=== PATIENT | male | born 1930 | race Hispanic/Latino ===

== ENCOUNTER 2017-11-19 23:21 | Emergency (ER) | payer OTHER ==
[~2017-11-19] VITALS: Ht 170.2 cm; Wt 81.2 kg
[~2017-11-19 23:21] MED LIST: ADVAIR HFA 230-12 GM INH; ALBUTEROL0.63 MG/3 INH; AZITHROMYCIN250 MG PO; BREO ELLIPTA INH; CITALOPRAM HBR20 MG PO; DIAZEPAM PO; DOXYCYCLINE HY100 MG PO; FLAGYL250 MG PO; FLOMAX0.4 MG PO; FLUOXETINE HCL10 MG PO; GLIPIZIDE ER5 MG PO; INCRUSE ELLIPTA INH; LEVOCETIRIZINE PO; LOSARTAN POTASS25 MG PO; MEDROL4 MG/DOSE-; METFORMIN HCL500 MG PO; MIRTAZAPINE15 MG PO; OMEPRAZOLE40 MG PO; PREDNISONE10 MG PO; QUESTRAN PACKET4 GM PO; VITAMIN D1000 UNI1 PO; ZOFRAN ODT4 MG; [UNRECOGNIZED DRUG - OTHER]
--- OUTSIDE RECORDS SUMMARY | 2017-11-19 23:24 | XMS REPORT ---
[facility] Address Unknown Phone Unavailable Care Team Providers Care Performance Improvement Director Name Role Phone Unavailable Unavailable Problems This patient has no known problems. Allergies, Adverse Reactions, Alerts This patient has no known allergies or adverse reactions. Medications This patient has no known medications. Results Test Description Test Time Test Comments Text Results Atomic Results Result Comments CT, BRAIN, WITHOUT CONTRAST 2017-06-24 12:40:00 Reason for exam:->FALLWhat is the patient's sedation requirement?->No Sedation FINAL REPORT CT Head without contrast CLINICAL HISTORY: Head trauma, ataxiaFALL Episode of Care: Initial TECHNIQUE: Contiguous axial images through the head without contrast. This exam was performed according to the departmental dose optimization program which includes automated exposure control, adjustment of the mA and/or kV according to the patient size, and/or use of an iterative reconstruction technique. COMPARISON: None FINDINGS: There is no evidence of skull fracture or intracranial hemorrhage. There is periventricular and subcortical white matter hypodensity which is nonspecific but compatible with chronic microvascular ischemic change. There are atherosclerotic calcifications of the intracranial circulation. There is generalized parenchymal volume loss without hydrocephalus, midline shift, or apparent mass effect. The paranasal sinuses are well-aerated. IMPRESSION: No evidence of skull fracture or intracranial hemorrhage. Signed: Cait Torres MDRort Verified Date/Time: 06/24/2017 12:40:28 Reading Location: [facility] Radiology Reading Room
--- NOTE | 2017-11-20 00:19 | Diagnostic Imaging Report ---
EXAMINATION: CHEST 2 VIEWS INDICATION: Shortness of breath COMPARISON: 04/26/2017 FINDINGS: TUBES and LINES: None. LUNGS: Lungs are well inflated. Lungs are clear. There is no evidence of pneumonia or pulmonary edema. PLEURA: No pleural effusion or pneumothorax. HEART AND MEDIASTINUM: The cardiomediastinal silhouette is unremarkable. BONES AND SOFT TISSUES: No acute osseous lesion. Soft tissues are unremarkable. UPPER ABDOMEN: No free air under the diaphragm. IMPRESSION: No acute thoracic abnormality. Signed by: Dr. Tomi Zamudio M.D. on 11/20/2017 12:15 AM
== END 2017-11-20 01:03 | disposition home or self-care (01) ==
LOC: ER 23:21
DX: F41.1 Generalized anxiety disorder (principal); I10 Essential (primary) hypertension; J44.9 Chronic obstructive pulmonary disease, unspecified; K21.9 Gastro-esophageal reflux disease without esophagitis
CPT/HCPCS: 71046; 99283

== ENCOUNTER 2018-04-23 06:22 | Observation (INO) | payer OTHER ==
[2018-04-23] VITALS (7 sets, daily range): BP systolic 119–156; BP diastolic 65–89
[~2018-04-23] VITALS: Ht 167.6 cm; Wt 83.5 kg
[2018-04-23] MEDS ORDERED: VENTOLIN HFA18 GM INH (06:44)
[2018-04-23] MEDS ORDERED: SINEMET 25-1001 EACH PO (06:44)
[2018-04-23] MEDS ORDERED: GLIMEPIRIDE2 MG PO (06:44)
[2018-04-23] MEDS ORDERED: SYNTHROID50 MCG PO (06:44)
[2018-04-23] MEDS ORDERED: LORAZEPAM INJ 2 MG/ML VIAL IV ONE (06:45)
[2018-04-23 06:52] LABS: BASOPHILS % 0.3 % (0.0-1.0); HEMATOCRIT 42.3 % (38.2-49.6); HEMOGLOBIN 14.1 g/dL (14.0-18.0); LYMPHOCYTES # (AUTO) 0.7 (1.0-3.2); LYMPHOCYTES % 19.6 % (18.0-39.1); MEAN CORPUSCULAR HEMOGLOBIN 29.1 pg (28-32); MEAN CORPUSCULAR HGB CONC 33.3 g/dL (31-35); MEAN CORPUSCULAR VOLUME 87.4 fL (81-99); MONOCYTES # (AUTO) 0.8 (0.2-0.8); MONOCYTES % 23.5 % (4.4-11.3); NEUTROPHILS % 54.6 % (38.7-80.0); PLATELET COUNT 75 x10e3/uL (140-360); RED BLOOD COUNT 4.84 x10e6/uL (4.3-5.7); RED CELL DISTRIBUTION WIDTH 14.4 % (11.7-14.4)
[2018-04-23 06:53] LABS: INR 1.09; PROTHROMBIN TIME 13.3 seconds (11.9-14.5)
[2018-04-23 07:03] LABS: ALBUMIN 4.3 g/dL (3.5-5.0); ALBUMIN/GLOBULIN RATIO 1.3 (0.8-2.0); ALKALINE PHOSPHATASE 81 IU/L (40-150); ANION GAP 13.9 mmol/L (8-16); BLOOD UREA NITROGEN 15 mg/dL (7-26); BUN/CREATININE RATIO 13 (6-25); CALCIUM 9.6 mg/dL (8.4-10.2); CARBON DIOXIDE 27 mmol/L (22-29); CHLORIDE 104 mmol/L (98-107); CREATINE KINASE 137 IU/L (30-200); CREATININE, SERUM 1.18 mg/dL (0.72-1.25); EST GLOMERULAR FILTRATION RATE 58 ML/MIN (60-); GLUCOSE 112 mg/dL (74-118); MAGNESIUM 2.1 MG/DL (1.3-2.1); POTASSIUM 3.9 mmol/L (3.5-5.1); SODIUM 141 mmol/L (136-145)
[2018-04-23 07:05] LABS: ALANINE AMINOTRANSFERASE < 6 IU/L (0-55)
[2018-04-23 07:12] LABS: B-TYPE NATRIURETIC PEPTIDE2 62.3 pg/mL (0-100)
[2018-04-23 07:22] LABS: CLARITY,URINE HAZY (CLEAR); COLOR,URINE YELLOW (YELLOW); LEUKOCYTE ESTERASE ,URINE 1+ (NEGATIVE)
[2018-04-23 07:23] LABS: BILIRUBIN,URINE NEGATIVE (NEGATIVE); KETONES,URINE NEGATIVE (NEGATIVE); NITRITE,URINE NEGATIVE (NEGATIVE); PROTEIN,URINE DIPSTICK NEGATIVE (NEGATIVE); URINE UROBILINOGEN 0.2 mg/dL (0.2 - 1)
--- NOTE | 2018-04-23 07:26 | Diagnostic Imaging Report ---
EXAMINATION: PA and lateral views of the chest. COMPARISON: Chest 2 views 11/19/2017 CLINICAL HISTORY: Shortness of breath DISCUSSION: Lines/tubes: None. Lungs: The lungs are well inflated and grossly clear. There is no evidence of pneumonia or pulmonary edema. Pleura: There is no pleural effusion or pneumothorax. Heart and mediastinum: Stable mild enlargement of the cardiac silhouette. Pulmonary vasculature is normal. Tortuous aorta. Bones and soft tissues: No acute bony abnormalities. Degenerative changes in the thoracic spine IMPRESSION: Stable mild enlargement of the cardiac silhouette, without acute cardiopulmonary abnormalities. Signed by: Dr. Gurinder Hamm M.D. on 04/23/2018 7:23 AM
[2018-04-23 07:35] LABS: BACTERIA,URINE FEW /HPF; EPITHELIAL CELLS,URINE FEW /LPF; RBC,URINE 0-5 /HPF (0-5)
[2018-04-23] MEDS ORDERED: ACETAMINOPHEN 325 MG TAB PO PRN (07:45)
[2018-04-23] MEDS ORDERED: CLONIDINE HCL 0.1 MG TAB PO PRN (07:45)
[2018-04-23] MEDS ORDERED: ONDANSETRON HCL INJ 2 MG/ML VIAL IV PRN (07:45)
[2018-04-23] MEDS ORDERED: IBUPROFEN 200 MG TAB PO PRN (07:45)
[2018-04-23] MEDS ORDERED: LACTULOSE SYRUP 20 GM/30 ML UDC PO PRN (07:45)
[2018-04-23] MEDS ORDERED: DIPHENHYDRAMINE HCL 25 MG CAP PO PRN (07:45)
[2018-04-23] MEDS ORDERED: ZOLPIDEM TARTRATE 5 MG TAB PO PRN (07:45)
[2018-04-23] MEDS ORDERED: ALBUTEROL/IPRATROPIUM 3 ML NEB NEB PRN (07:45)
[2018-04-23] MEDS ORDERED: ENALAPRILAT IV INJ 1.25 MG/ML VIAL IV PRN (07:45)
[2018-04-23] MEDS ORDERED: SODIUM CHLORIDE FLUSH 10 ML SYR INJ PRN (07:45)
[2018-04-23] MEDS ORDERED: IBUPROFEN 400 MG TAB PO PRN (11:30)
[2018-04-23] MEDS ORDERED: DEXTROSE 50% SYRINGE 50 ML IV PRN (14:15)
[2018-04-23] MEDS: CARBIDOPA/LEVODOPA 25/100 TAB PO SCH ×2 (16:00→21:12)
[2018-04-23] MEDS: INSULIN LISPRO 100 UNIT/1 ML 3ML VIAL SQ SCH ×2 (16:30→21:00)
[2018-04-23] MEDS: GLIMEPIRIDE 2 MG TAB PO SCH (16:46)
--- NOTE | 2018-04-23 17:36 | Diagnostic Imaging Report ---
EXAMINATION: CT scan of the chest without contrast. TECHNIQUE: Spiral CT images of the chest were performed from the lung apices to the level of the adrenal glands. No intravenous contrast was administered per physician's request. Coronal and sagittal reformatted images were obtained. COMPARISON: CT chest 04/26/2017 CLINICAL HISTORY:Dyspnea, shortness of breath DISCUSSION: ABSENCE OF INTRAVENOUS CONTRAST DECREASES SENSITIVITY FOR DETECTION OF FOCAL LESIONS AND VASCULAR PATHOLOGY. LINES/TUBES: None. LUNGS AND AIRWAYS: Mild groundglass attenuation in the posterior segment of the right upper lobe, similar to the prior exam, with associated focal bronchiectasis, likely representing mild fibrosis. Stable mild subpleural reticulation in bilateral lower lobes, likely reflecting mild fibrotic changes. No consolidation, masses or other opacities. Stable 5-6 mm nodular density in the right upper lobe (series 3, image 28). Stable 5 mm noncalcified nodule in the posterior right lower lobe (series 3, image 82), which is slightly more conspicuous on today's exam likely due to slice selection. No other nodules. The airways are clear, without endobronchial lesions. PLEURA: No pneumothorax or pleural effusions. HEART AND MEDIASTINUM: Thyroid is unremarkable. Stable cardiomegaly. No pericardial effusion. Ectasia of the ascending aorta, which measures 4.1 x 4.0 cm. Main pulmonary artery is normal in caliber. Atherosclerotic calcification of the aortic arch. LYMPH NODES: There is no mediastinal, hilar or axillary lymphadenopathy. ABDOMEN: Limited unenhanced views of the upper abdomen show no abnormality within the visualized liver, spleen, pancreas, or adrenals. BONES AND SOFT TISSUES: No aggressive lytic lesions. Degenerative disc changes in the thoracic spine. Soft tissues are unremarkable. IMPRESSION: 1. Stable mild fibrotic changes in the posterior segment of the right upper lobe and bilateral lower lobes. 2. Stable pulmonary nodules in the right upper lobe and right lower lobe. No consolidation, masses or other opacities. 3. Stable cardiomegaly. Signed by: Dr. Gurinder Hamm M.D. on 04/23/2018 5:33 PM
[2018-04-24 04:10] VITALS: BP 135/65
[2018-04-24] MEDS ORDERED: LEVOTHYROXINE SODIUM 25 MCG TABLET PO SCH (06:00)
[2018-04-24] MEDS ORDERED: LEVOTHYROXINE SODIUM 50 MCG TAB PO SCH (06:30)
[2018-04-24 07:51] VITALS: BP 142/67
[2018-04-24] MEDS: INSULIN LISPRO 100 UNIT/1 ML 3ML VIAL SQ SCH (09:00)
[2018-04-24] MEDS ORDERED: LOSARTAN POTASSIUM 25 MG TAB PO SCH (09:00)
[2018-04-24] MEDS ORDERED: TAMSULOSIN HCL 0.4 MG CAP PO SCH (09:00)
[2018-04-24] MEDS ORDERED: PANTOPRAZOLE SOD 40 MG TABEC PO SCH (09:00)
[2018-04-24] MEDS: GLIMEPIRIDE 2 MG TAB PO SCH (09:37)
[2018-04-24] MEDS: CARBIDOPA/LEVODOPA 25/100 TAB PO SCH (09:38)
[2018-04-24] MEDS ORDERED: TRIAMCINOLONE ACET 40 MG/ML VIAL IM ONE (11:30)
[2018-04-24 12:17] VITALS: BP 154/70
--- NOTE | 2018-04-24 16:32 | Discharge Summary ---
PCP: Dr. Milagro Lemus CHIEF COMPLAINT: Acute exacerbation of COPD. HISTORY: This is an 87-year-old male who came in with oxygen saturation of around 95% to 98% at room air. He does have some minor wheezing. The patient is stable. He was on observation. The patient did receive Kenalog 20 mg IM one time. He will go home with a Medrol Dosepak. He does take diabetic medication. Advised the patient to increase his Amaryl if needed. The patient is stable. Discharged home today. Medications given. Medrol Dosepak. Continue with his albuterol and Breo. Cough medication, Tessalon Perles. Levaquin 500 mg daily for 5 days. Patient to follow up with Dr. Lemus for oxygen renewal. Job#: [id number] ROLO
== END 2018-04-24 12:32 | disposition home or self-care (01) ==
LOC: ER 06:22 → ERHOLD 07:59 → IMCU 10:30
PROVIDERS: ADMIT Internal Medicine; ATTEND Internal Medicine
DX: J44.1 Chronic obstructive pulmonary disease with (acute) exacerbation (principal); E11.9 Type 2 diabetes mellitus without complications; I10 Essential (primary) hypertension; Z86.711 Personal history of pulmonary embolism
CPT/HCPCS: 36415 ×2; 71046; 71250; 80053; 81001; 82550; 82553; 82948 ×2; 83605; 83735; 83880; 84484; 85025; 85610; 85730; 87040; 87086; 93005; 99284; G0378 ×2; J2060; J3301; S0164

== ENCOUNTER 2018-05-08 06:52 | Emergency (ER) | payer OTHER ==
[~2018-05-08] VITALS: Ht 167.6 cm; Wt 83.5 kg
[~2018-05-08 06:52] MED LIST changes: +GLIMEPIRIDE2 MG PO; +SINEMET 25-1001 EACH PO; +SYNTHROID50 MCG PO; +VENTOLIN HFA18 GM INH
[2018-05-08] MEDS ORDERED: KETOROLAC TROMETHAMINE 30 MG/ML VIAL IV NR (08:10)
[2018-05-08 08:27] LABS: EOSINOPHILS % 0.1 % (0.0-6.0); HEMOGLOBIN 14.3 g/dL (14.0-18.0); LYMPHOCYTES # (AUTO) 0.3 (1.0-3.2); MEAN CORPUSCULAR HEMOGLOBIN 29.2 pg (28-32); MEAN CORPUSCULAR HGB CONC 33.3 g/dL (31-35); MEAN CORPUSCULAR VOLUME 87.9 fL (81-99); MONOCYTES # (AUTO) 1.5 (0.2-0.8); MONOCYTES % 16.6 % (4.4-11.3); NEUTROPHILS # (AUTO) 7.2 (2.1-6.9); NEUTROPHILS % 79.1 % (38.7-80.0); PLATELET COUNT 67 x10e3/uL (140-360); RED BLOOD COUNT 4.89 x10e6/uL (4.3-5.7); RED CELL DISTRIBUTION WIDTH 14.9 % (11.7-14.4)
[2018-05-08] MEDS ORDERED: ASPIRIN 81 MG CHEW TAB PO ONE (08:30)
--- NOTE | 2018-05-08 09:39 | Diagnostic Imaging Report ---
EXAM: XR CHEST 1 VIEW DATE: 05/08/2018 8:10 AM INDICATION: Pain COMPARISON: 04/23/2018 FINDINGS: Lines and Tubes: None Heart and Mediastinum: No acute cardiomediastinal findings. Lungs and Pleura: No significant pleural effusion, pneumothorax, or focal consolidation. Bones and Soft Tissues: No acute findings. IMPRESSION: 1. No acute cardiopulmonary findings. Signed by: Dr. German Diaz MD on 05/08/2018 9:36 AM
[2018-05-08 09:53] LABS: ALANINE AMINOTRANSFERASE 12 IU/L (0-55); ALBUMIN 3.6 g/dL (3.5-5.0); ALBUMIN/GLOBULIN RATIO 1.2 (0.8-2.0); ALKALINE PHOSPHATASE 88 IU/L (40-150); AMYLASE 27 U/L (25-125); ANION GAP 14.8 mmol/L (8-16); BLOOD UREA NITROGEN 15 mg/dL (7-26); BUN/CREATININE RATIO 15 (6-25); CALCIUM 8.8 mg/dL (8.4-10.2); CARBON DIOXIDE 23 mmol/L (22-29); CHLORIDE 102 mmol/L (98-107); CREATINE KINASE 23 IU/L (30-200); CREATININE, SERUM 1.02 mg/dL (0.72-1.25); EST GLOMERULAR FILTRATION RATE > 60 ML/MIN (60-); LIPASE 4 U/L (8-78); POTASSIUM 3.8 mmol/L (3.5-5.1); SODIUM 136 mmol/L (136-145)
[2018-05-08 10:29] LABS: GLUCOSE 184 mg/dL (74-118)
[2018-05-08] MEDS ORDERED: KETOROLAC TROMETHAMINE 30 MG/ML VIAL ONE (13:30)
[2018-05-08] MEDS ORDERED: KETOROLAC TROMETHAMINE 30 MG/ML VIAL IV ONE (14:52)
--- NOTE | 2018-05-08 14:52 | Diagnostic Imaging Report ---
EXAM: CT Abdomen and Pelvis WITH contrast INDICATION: Pain COMPARISON: None. TECHNIQUE: Abdomen and Pelvis was scanned utilizing a multidetector helical scanner after administration of IV contrast. Coronal and sagittal reformations were obtained. IV CONTRAST: 100 mL Isovue-370 COMPLICATIONS: None RADIATION DOSE: Total DLP:935 mGy*cm Estimated effective dose: (DLP x 0.015 x size factor) mSv CTDIvol has been reviewed. It is below the limits set by the Radiation Protocol Committee (RPC). FINDINGS: Abdomen: Lung Bases: Atelectasis. Solid Organs: Several bilateral renal hypodensities are too small to definitively characterize, but statistically represent cysts. Solid organs otherwise unremarkable. Upper GI Tract: Small hiatal hernia. Motion limits evaluation of the gastric antrum. No small bowel obstructive changes. Vascularity: Mild aortic vascular calcifications with no aneurysm. Lymph Nodes: No suspicious adenopathy. Other: None. Pelvis: Bladder: Small diverticulum arising from anterior aspect of the dome. Other: Prostate is enlarged and heterogeneous indenting the base of the bladder. Transverse diameter 67mm. Fat-containing hernias with knuckle of sigmoid on the left interposed. Colon: Distal decompression limits evaluation. No acute findings. Appendix not inflamed. Bones: Moderate degenerative changes. IMPRESSION: 1. Enlarged prostate indenting base of bladder. Clinical and laboratory correlation recommended. 2. Asymmetric to the left predominantly fat-containing inguinal hernias with knuckle of sigmoid colon interposed on the left. No obstructive changes. 3. Hiatal hernia. Signed by: Dr. German Diaz MD on 05/08/2018 12:30 PM
[2018-05-08 16:21] VITALS: BP 146/76
[2018-05-08] MEDS ORDERED: IOPAMIDOL 370 MG/ML 200 ML INFUS..BTL INJ ONE (18:56)
[2018-05-08] MEDS ORDERED: SODIUM CHLORIDE 0.9% 50ML 50 ML ONE (18:56)
== END 2018-05-08 14:00 | disposition home or self-care (01) ==
LOC: ER 06:52
DX: R10.11 Right upper quadrant pain (principal); R09.1 Pleurisy; R11.0 Nausea; I10 Essential (primary) hypertension; E11.9 Type 2 diabetes mellitus without complications; E03.9 Hypothyroidism, unspecified
CPT/HCPCS: 36415; 71045; 74177; 80053; 82150; 82550; 82553; 83690; 84484; 85025; 99284; J1885; Q9967

== ENCOUNTER 2018-05-30 14:48 | Emergency (ER) | payer OTHER ==
[~2018-05-30] VITALS: Ht 167.6 cm; Wt 83.5 kg
[2018-05-30] MEDS ORDERED: PREDNISONE 20 MG TAB PO ONE (16:45)
--- OUTSIDE RECORDS SUMMARY | 2018-07-14 03:15 | XMS REPORT | Clinical Summary ---
Author Author [facility] Address Unknown Phone Unavailable Care Team Providers Care Voltage Tester Name Role Phone PCP Unavailable Allergies No Known Allergies Current Medications Prescription Sig. Disp. Refills Start End Date Status Date mupirocin (BACTROBAN) 2 % Apply topically 3 (three) 22 g 0 06/24/20 07/01/20 ointment times daily for 7 days. 17 17 Active Problems Not on file Encounters Date Type Specialty Care Team Description 06/24/2017 Emergency Emergency Medicine Hiram Clifford MD Fall, initial encounter (Primary Dx);Head injury, initial encounter;Ear lobe laceration, left, initial encounter after 05/29/2017 Immunizations Name Dates Previously Given Next Due Tdap 06/24/2017 Social History Tobacco Use Types Packs/Day Years Used Date Former Smoker Smokeless Tobacco: Never Used Alcohol Use Drinks/Week oz/Week Comments No Sex Assigned at Date Recorded Not on file Last Filed Vital Signs Vital Sign Reading Time Taken Blood Pressure 136/84 06/24/2017 2:19 PM CDT Pulse 85 06/24/2017 2:19 PM CDT Temperature 36.6 C (97.8 F) 06/24/2017 11:30 AM CDT Respiratory Rate 16 06/24/2017 2:19 PM CDT Oxygen Saturation 94% 06/24/2017 2:19 PM CDT Inhaled Oxygen - - Concentration Weight 79.4 kg (175 lb) 06/24/2017 11:30 AM CDT Height 170.2 cm (5' 7") 06/24/2017 11:30 AM CDT Body Mass Index 27.41 06/24/2017 11:30 AM CDT Plan of Treatment Not on file Results * CT brain without IV contrast (06/24/2017 12:40 PM) Specimen Performing Laboratory GE RIS Narrative FINAL REPORT CT Head without contrast CLINICAL HISTORY: Head trauma, ataxia FALL Episode of Care: Initial TECHNIQUE: Contiguous axial [...] skull fracture or intracranial hemorrhage. Signed: Cait Hyde MD Report Verified Date/Time:06/24/2017 12:40:28 Reading Location: [facility] Reading Room Procedure Note Interface, External Ris In - 06/24/2017 12:42 PM CDT FINAL REPORT CT Head without contrast CLINICAL HISTORY: Head trauma, ataxia FALL Episode of Care: Initial TECHNIQUE: Contiguous axial [...] skull fracture or intracranial hemorrhage. Signed: Cait Hyde MD Report Verified Date/Time: 06/24/2017 12:40:28 Reading Location: [facility] Reading Room after 05/29/2017
--- OUTSIDE RECORDS SUMMARY | 2018-07-14 03:15 | XMS REPORT | Continuity of Care Document ---
Author Author [facility] Organization [facility] Address [address] [place] [address] Phone Unavailable Care Team Providers Care Cycle Manager Name Role Phone NONSTAFF PCP Unavailable Insurance Providers Guarantor Jay Chin Address [address] [place] [address] Email NONE Payer [employer] Policy Number [id number] Subscriber's Name Jay Chin Relationship 18 Self / Same As Patient Group Number [id number] Group Name [employer] - [employer] Ad[employer]age [employer] Effective Date 18 Advance Directives Directive Response Recorded Date/Time Does the patient have an advance directive? No 04/23/18 12:21pm If yes, is advance directive on file with [facility]? No 04/23/18 12:21pm If not on file with [facility] will patient provide a copy? No 04/23/18 12:21pm Do you have a Directive to Physician? No 05/08/18 7:21am Do you have a Medical Power of Outboard Motor Tester? No 05/08/18 7:21am Do you have an out of hospital Do Not Resuscitate Order? No 05/08/18 7:21am Do you have any special needs we should be aware of? No 05/08/18 7:21am Do you have a support person here with you today? No 05/08/18 7:21am Did patient receive Notice of Privacy Practices? Yes 05/08/18 7:21am Did patient receive patient rights and responsibilities? Yes 05/08/18 7:21am Problems Medical Problem Onset Date Status Bronchitis Unknown COPD exacerbation Unknown Dyspnea and respiratory abnormality Unknown Dyspnea or other respiratory complaints Unknown Enterocolitis Unknown Medications Current Home Medications Medication Dose Units Route Directions Days Qty Instructions Start Date Albuterol Sulfate (Ventolin Hfa) 18 Gm Hfa.aer.ad 2 Dose Inhalation Every 4 Hours as needed for Shortness Of Breath Breo Ellipta 1 Inh Inhalation Daily Carbidopa/Levodopa (Sinemet 25-100 Mg Tablet) 1 Each Tablet 2 Tab Oral Three Times A Day 30 Tab Glimepiride 2 Mg Tablet 1 Mg Oral Twice A Day Levothyroxine Sodium (Synthroid) 50 Mcg Tab 25 Mcg Oral Today At 6:30AM 30 Tab Losartan Potassium 25 Mg Tablet 25 Mg Oral Daily Omeprazole 40 Mg Capsule.dr 40 Mg Oral Daily Tamsulosin Hcl (Flomax*) 0.4 Mg Cap 0.4 Mg Oral Daily 30 Cap Past Home Medications Medication Directions Ordered Status Albuterol Sulfate 0.63 Mg/3 Ml Vial.neb, 0.63 Mg Inhalation Every 4 Hours as needed for Shortness Of Breath Discontinued Aromatic Cascara Fluid Extract (C[place]) 118.28 Ml Fl.extract, Discontinued Azithromycin (Z-Arden) 250 Mg Tablet, 250 Mg Oral Use As Directed Discontinued Citalopram Hydrobromide (Citalopram Hbr) 20 Mg Tablet, 20 Mg Oral Daily Discontinued Diazepam , 1 Mg Oral Twice A Day as needed for Anxiety Discontinued Doxycycline Hyclate 100 Mg Capsule, 100 Mg Oral Every 12 Hours Discontinued Levocetirizine , 5 Mg Oral Bedtime Discontinued Metformin Hcl 500 Mg Tablet, 500 Mg Oral Twice A Day Discontinued Methylprednisolone (Medrol Dose Pack) 4 Mg/Dose Pack Tab, Discontinued Social History Social History Problem Response Recorded Date/Time Onset Date Status Hx Psychiatric Problems No 10/07/2016 4:40am Not Applicable Not Applicable Hx Eating Disorder No 10/07/2016 4:40am Not Applicable Not Applicable Hx Substance Use Disorder No 10/07/2016 4:40am Not Applicable Not Applicable Hx Depression No 10/07/2016 4:40am Not Applicable Not Applicable Hx Alcohol Use No 10/07/2016 4:40am Not Applicable Not Applicable Hx Substance Use Treatment No 10/07/2016 4:40am Not Applicable Not Applicable Hx Physical Abuse No 10/07/2016 4:40am Not Applicable Not Applicable Smoking Status Start Date Stop Date Never Smoker Hospital Discharge Instructions No hospital discharge instruction information available. Plan of Care Discharge Date 07/29/18 2:00pm Disposition HOME, SELF-CARE Condition at Discharge Stable Forms Provided Work/School Excuse Prescriptions See Medication Section Additional Instructions/Education FOLLOW UP C PRIMARY TAKE RX PRESCRIBED Functional Status No functional status information available. Allergies, Adverse Reactions, Alerts Allergen Type Severity Reaction Status Last Updated No Known Drug Allergies Allergy Mild Active 05/08/18 Immunizations No immunization information available. Vital Signs Acute Vital Signs Vital Response Date/Time Temperature (Fahrenheit) 96.2 degrees F (97.6 - 99.5) 04/24/2018 12:17pm Pulse Pulse Rate (adult) 76 bpm (60 - 90) 04/24/2018 12:17pm Respiratory Rate 18 bpm (12 - 24) 04/24/2018 12:17pm Blood Pressure 146/76 mm Hg 05/08/2018 4:21pm Height 5 ft 6 in 05/08/2018 7:25am Weight 184 lb 05/08/2018 7:25am Body Mass Index 29.7 kg/m^2 05/08/2018 7:25am Results Laboratory Results Test Name Result Units Flags Reference Collection Date/Time Result Date/ Time Comments Prothrombin Time 13.3 seconds 11.9-14.5 04/23/2018 6:35am 04/23/2018 7: 01am Prothromb Time International Ratio 1.09 04/23/2018 6:35am 2017 7:01am Oral Anticoagulant Therapy INR Values: 1. Low Intensity Therapy 1.5 - 2.0 2. Moderate Intensity Therapy 2.0 - 3.0 3. High Intensity Therapy(1) 2.5 - 3.5 4. High Intensity Therapy(2) 3.0 - 4.0 5. Panic Value INR > 5.0 Activated Partial Thromboplast Time 40.0 seconds H 23.8-35.5 04/23/2018 6 :35am 04/23/2018 7:01am Urine Color YELLOW YELLOW 04/23/2018 7:00am 04/23/2018 7:23am Urine Clarity HAZY CLEAR 04/23/2018 7:00am 04/23/2018 7:23am Urine Specific [place] 1.010 1.010-1.025 04/23/2018 7:00am 2017 7:23am Urine pH 6 5 - 7 04/23/2018 7:00am 04/23/2018 7:23am Urine Leukocyte Esterase 1+ H NEGATIVE 04/23/2018 7:00am 04/23/2018 7: 23am Urine Nitrite NEGATIVE NEGATIVE 04/23/2018 7:00am 04/23/2018 7:23am Urine Protein NEGATIVE NEGATIVE 04/23/2018 7:00am 04/23/2018 7:23am Urine Glucose (UA) NEGATIVE NEGATIVE 04/23/2018 7:00am 04/23/2018 7: 23am Urine Ketones NEGATIVE NEGATIVE 04/23/2018 7:00am 04/23/2018 7:23am Urine Urobilinogen 0.2 mg/dL 0.2 - 1 04/23/2018 7:00am 04/23/2018 7: 23am Urine Bilirubin NEGATIVE NEGATIVE 04/23/2018 7:00am 04/23/2018 7: 23am Urine Blood NEGATIVE NEGATIVE 04/23/2018 7:00am 04/23/2018 7:23am Urine WBC 6-10 /HPF H 0-5 04/23/2018 7:00am 04/23/2018 7:35am Urine RBC 0-5 /HPF 0-5 04/23/2018 7:00am 04/23/2018 7:35am Urine Bacteria FEW /HPF NONE 04/23/2018 7:00am 04/23/2018 7:35am Urine Epithelial Cells FEW /LPF NONE 04/23/2018 7:00am 04/23/2018 7: 35am Bedside Glucose 125 mg/dL H 70-120 04/24/2018 12:13pm 04/24/2018 12: 21pm Meter ID: [id number] Lactic Acid Level 11.4 MG/DL 4.5-19.8 04/23/2018 6:35am 04/23/2018 7: 01am Magnesium Level 2.1 MG/DL 1.3-2.1 04/23/2018 6:35am 04/23/2018 7:05am B-Type Natriuretic Peptide 62.3 pg/mL 0-100 04/23/2018 6:35am 2017 7:14am White Blood Count 9.06 x10e3/uL 4.8-10.8 05/08/2018 7:50am 05/08/2018 8 :33am Red Blood Count 4.89 x10e6/uL 4.3-5.7 05/08/2018 7:5005/08/2018 8: 33am Hemoglobin 14.3 g/dL 14.0-18.0 05/08/2018 7:50am 05/08/2018 8:33am Hematocrit 43.0 % 38.2-49.6 05/08/2018 7:5005/08/2018 8:33am Mean Corpuscular Volume 87.9 fL 81-99 05/08/2018 7:5005/08/2018 8: 33am Mean Corpuscular Hemoglobin 29.2 pg 28-32 05/08/2018 7:50am 05/08/2018 8:33am Mean Corpuscular Hemoglobin Concent 33.3 g/dL 31-35 05/08/2018 7:50am 05/08/2018 8:33am Red Cell Distribution Width 14.9 % H 11.7-14.4 05/08/2018 7:50am 2017 8:33am Platelet Count 67 x10e3/uL L 140-360 05/08/2018 7:5005/08/2018 8: 33am Neutrophils (%) (Auto) 79.1 % 38.7-80.0 05/08/2018 7:50am 05/08/2018 8: 33am Lymphocytes (%) (Auto) 3.0 % L 18.0-39.1 05/08/2018 7:50am 05/08/2018 8: 33am Monocytes (%) (Auto) 16.6 % H 4.4-11.3 05/08/2018 7:50am 05/08/2018 8: 33am Eosinophils (%) (Auto) 0.1 % 0.0-6.0 05/08/2018 7:50am 05/08/2018 8: 33am Basophils (%) (Auto) 0.0 % 0.0-1.0 05/08/2018 7:5005/08/2018 8:33am IM GRANULOCYTES % 1.2 % H 0.0-1.0 05/08/2018 7:50am 05/08/2018 8:33am Neutrophils # (Auto) 7.2 H 2.1-6.9 05/08/2018 7:50am 05/08/2018 8: 33am Lymphocytes # (Auto) 0.3 L 1.0-3.2 05/08/2018 7:50am 05/08/2018 8: 33am Monocytes # (Auto) 1.5 H 0.2-0.8 05/08/2018 7:50am 05/08/2018 8:33am Eosinophils # (Auto) 0.0 0.0-0.4 05/08/2018 7:50am 05/08/2018 8:33am Basophils # (Auto) 0.0 0.0-0.1 05/08/2018 7:50am 05/08/2018 8:33am Absolute Immature Granulocyte (auto 0.11 x10e3/uL H 0-0.1 05/08/2018 7: 50am 05/08/2018 8:33am Sodium Level 136 mmol/L 136-145 05/08/2018 9:1405/08/2018 9:54am Potassium Level 3.8 mmol/L 3.5-5.1 05/08/2018 9:1405/08/2018 9:54am Chloride Level 102 mmol/L 98-107 05/08/2018 9:1405/08/2018 9:54am Carbon Dioxide Level 23 mmol/L 05/08/2018 9:1405/08/2018 9: 54am Anion Gap 14.8 mmol/L 8-05/08/2018 9:1405/08/2018 9:54am Blood Urea Nitrogen 15 mg/dL 05-0505/08/2018 9:1405/08/2018 9:54am Creatinine 1.02 mg/dL 0.72-1.25 05/08/2018 9:1405/08/2018 9:54am BUN/Creatinine Ratio 15 -05/08/2018 9:1405/08/2018 9:54am Estimat Glomerular Filtration Rate > 60 ML/MIN 6005/08/2018 9:14 9:54am Ranges were taken from the National Kidney Disease Education Program and the National Kid[employer] Foundation literature. Reference ranges: 60 or greater: Normal 16-59 (for 3 consecutive months): Chronic kidney disease 15 or less: Kidney failure Glucose Level 184 mg/dL H 74-118 05/08/2018 9:14am 05/08/2018 10:30am Calcium Level 8.8 mg/dL 8.4-10.2 05/08/2018 9:1405/08/2018 9:54am Total Bilirubin 2.0 mg/dL H 0.2-1.2 05/08/2018 9:14am 05/08/2018 9:54am Aspartate Amino Transf (AST/SGOT) 19 IU/L 5-34 05/08/2018 9:14am 2017 9:54am Alanine Aminotransferase (ALT/SGPT) 12 IU/L 0-55 05/08/2018 9:14 9:54am Total Protein 6.6 g/dL 6.5-8.1 05/08/2018 9:1405/08/2018 9:54am Albumin 3.6 g/dL 3.5-5.0 05/08/2018 9:1405/08/2018 9:54am Globulin 3.0 g/dL 2.3-3.5 05/08/2018 9:1405/08/2018 9:54am Albumin/Globulin Ratio 1.2 0.8-2.0 05/08/2018 9:14am 05/08/2018 9: 54am Alkaline Phosphatase 88 IU/L 40-150 05/08/2018 9:14am 05/08/2018 9: 54am Creatine Kinase 23 IU/L L 30-200 05/08/2018 9:14am 05/08/2018 9:54am Creatine Kinase MB 1.40 ng/mL 0-5.0 05/08/2018 9:14am 05/08/2018 10: 04am Troponin I 0.004 ng/mL 0-0.300 05/08/2018 9:14am 05/08/2018 10:04am Amylase Level 27 U/L 25-125 05/08/2018 9:14am 05/08/2018 9:54am Lipase 4 U/L L 8-78 05/08/2018 9:14am 05/08/2018 9:54am Microbiology Results Procedure Source Organism/Result Collection Date/Time Result Date/Time Result Status Blood Culture Blood NO GROWTH AFTER 5 DAYS, FINAL REPORT 04/23/2018 6:35am 04/28/2018 6:45am Final Procedures Procedure Status Date Provider(s) X-ray of chest, two views Active 11/19/17 SIDDHARTH MOTT MD X-ray of chest, two views Active 04/23/18 HAYDE KIM MD Computed tomography of chest without contrast Active 04/23/18 CLAIRE STAUFFER MD Computed tomography of abdomen and pelvis with contrast Active 05/08/18 МАРИНА ENRIQUE MD Encounters Encounter Location Arrival/Admit Date Discharge/Depart Date Attending Provider Departed Emergency Room [facility] 05/08/18 6:52am 2:00pm МАРИНА ENRIQUE MD Discharged Inpatient (obs) [facility] 04/23/18 7:59am 12:32pm CLAIRE STAUFFER MD Departed Emergency Room [facility] 11/19/17 11:21pm 11/20 1:03am SIDDHARTH MOTT MD
== END 2018-05-30 17:19 | disposition home or self-care (01) ==
LOC: ER 14:48
DX: L50.9 Urticaria, unspecified (principal); I10 Essential (primary) hypertension; E11.9 Type 2 diabetes mellitus without complications; E78.5 Hyperlipidemia, unspecified; J44.9 Chronic obstructive pulmonary disease, unspecified
CPT/HCPCS: 99282

== ENCOUNTER 2018-07-31 14:53 | Inpatient (IN) | payer OTHER ==
[~2018-07-31] VITALS: Ht 167.6 cm; Wt 92.2 kg
--- OUTSIDE RECORDS SUMMARY | 2018-07-31 14:55 | XMS REPORT | Clinical Summary ---
Author Author [facility] Address Unknown Phone Unavailable Care Team Providers Care Generator Rebuilder Name Role Phone PCP Unavailable Allergies No Known Allergies Current Medications No known medications Active Problems Not on file Immunizations Name Dates Previously Given Next Due Tdap 06/24/2017 Social History Tobacco Use Types Packs/Day Years Used Date Former Smoker Smokeless Tobacco: Never Used Alcohol Use Drinks/Week oz/Week Comments No Sex Assigned at Date Recorded Not on file Last Filed Vital Signs Not on file Plan of Treatment Not on file Results Not on fileafter 07/30/2017
--- OUTSIDE RECORDS SUMMARY | 2018-07-31 14:56 | XMS REPORT | Continuity of Care Document ---
Author Author [facility] Address Unknown Phone Unavailable Problems Problem Status Onset Date Classification Date Reported Comments Source UNSTEADINESS ON FEET/MUSCLE WEAKNESS Active 01/05/2017 [facility] Benign hypertension Active Problem 04/10/2018 [facility] Chronic kidney disease , stage III (moderate)(<span ID="[id number]">Confirmed</span>) Active Problem 04/10/2018 [facility] Chronic obstructive pulmonary disease (<span ID="[id number]">Confirmed</span>) Active Problem 04/10/2018 [facility] Requires supplemental oxygen Active Problem 04/10/2018 [facility] Diabetes mellitus type 2, controlled, with complications Active Problem 09/18/2017 [facility] GERD (<span ID="[id number]">Confirmed</span>) Active Problem 04/10/2018 [facility] Hyperlipidemia Active Problem 04/10/2018 [facility] Parkinson disease Active Problem 04/10/2018 [facility] Insomnia Active Problem 04/10/2018 [facility] Depression Active Problem 04/10/2018 [facility] BPH (<span ID="[id number]">Confirmed</span>) Active Problem 04/10/2018 [facility] Obesity Active Problem 04/10/2018 [facility] Osteoarthritis Active Problem 04/10/2018 [facility] Thrombocytopenia Active Problem 04/10/2018 [facility] Unstable gait Active Problem 04/10/2018 [facility] Type 2 diabetes mellitus with hyperglycemia Active Problem 04/10/2018 [facility] Hypothyroidism Active Problem 04/10/2018 [facility] Medications Medication Details Route Status Patient Instructions Ordering Provider Order Date Source tamsulosin 0.4 mg oral capsule 0.4 mg=1 cap, PO, Daily, # 90 cap, 1 Refill(s), Pharmacy: [facility]/pharmacy #[id number] Active 04/07/2018 [facility] omeprazole 40 mg oral delayed release capsule See Instructions, TAKE ONE CAPSULE BY MOUTH EVERY DAY, # 90 tab, 1 Refill(s), Pharmacy: [facility]acy #[id number] Active 04/07/2018 [facility] glimepiride 1 mg oral tablet 1 mg=1 tab, PO, BID, # 180 tab, 1 Refill(s), [id number] 04/07[facility]2018 [facility] losartan 25 mg oral tablet See Instructions, TAKE 1 TABLET BY MOUTH DAILY FOR 90 DAYS, # 90 tab, 1 Refill(s), [facility] Active 04/07/2018 [facility] levothyroxine 25 mcg (0.025 mg) oral tablet 25 microgram=1 tab, PO, Daily, on empty stomach, # 90 tab, 1 Refill(s), [id number] Active 04/07/2018 [facility] citalopram 20 mg oral tablet 20 mg=1 tab, PO, Daily, # 90 tab, 0 Refill(s), [id number] Active 04/07/2018 [facility] losartan 25 mg oral tablet See Instructions, TAKE 1 TABLET BY MOUTH DAILY FOR 90 DAYS, # 90 tab, 1 Refill(s), [id number] Active 12/28/2017 [facility] glimepiride 1 mg oral tablet 1 mg=1 tab, PO, BID, # 180 tab, 1 Refill(s), [id number] Active 12/28/2017 [facility] levothyroxine 25 mcg (0.025 mg) oral tablet 25 microgram=1 tab, PO, Daily, on empty stomach, # 30 tab, 2 Refill(s), [id number] Active 12/28/2017 [facility] tamsulosin 0.4 mg oral capsule 0.4 mg=1 cap, PO, Daily, # 90 cap, 1 Refill(s), [id number] Active 11/16/2017 [facility] losartan 25 mg oral tablet See Instructions, TAKE 1 TABLET BY MOUTH DAILY FOR 90 DAYS, # 90 tab, 1 Refill(s), [id number] No Longer Active 11/16/2017 [facility] glimepiride 1 mg oral tablet See Instructions, TAEK 1 TABLET BY MOUTH WITH BREAKFAST, # 90 tab, 1 Refill(s), [id number] No Longer Active 11/16/2017 [facility] citalopram 20 mg oral tablet 20 mg=1 tab, PO, Daily, # 90 tab, 0 Refill(s), [id number] Active 11/16/2017 [facility] Breo Ellipta 100 mcg-25 mcg inhalation powder 1 puff, INHALATION, BID, # 3 ea, 1 Refill(s), [id number] Active 11/16/2017 [facility] Ventolin HFA 90 mcg/inh inhalation aerosol with adapter 180 microgram=2 puff, INHALER, Q4H, PRN wheezing, coughing, or shortness of breath, # 3 ea, 1 Refill(s), [id number] Active 11/16/2017 [facility] Ventolin HFA 90 mcg/inh inhalation aerosol with adapter 180 microgram=2 puff, INHALER, Q4H, PRN wheezing, coughing, or shortness of breath, # 3 ea, 1 Refill(s), [id number] Active 09/15/2017 [facility] Breo Ellipta 100 mcg-25 mcg inhalation powder 1 puff, INHALATION, BID, # 3 ea, 1 Refill(s), [id number] Active 09/15/2017 [facility] Allergies, Adverse Reactions, Alerts Substance Category Reaction Severity Reaction type Status Date Reported Comments Source Immunizations Immunization Date Given Site Status Last Updated Comments Source pneumococcal 13-valent vaccine<sup>1</sup> 09/15/2017 Left Deltoid completed [facility] Result Comment: Patient waited 15 minutes, no reaction noted. [facility] influenza virus vaccine, inactivated<sup>2</sup> 08/11/2017 completed [facility] Result Comment: [11/16/2017] @[facility] pneumococcal 23-valent vaccine 09/10/2016 completed [facility] influenza virus vaccine, inactivated 09/10/2016 completed [facility] Results Order Name Results Value Reference Range Date Interpretation Comments Source Vital Signs Vital Sign Value Date Comments Source Weight 88.636 04/07/2018 [facility] BMI Calculated 30.61 04/07/2018 [facility] Height 170.18 cm 04/07/2018 [facility] Heart Rate 71 04/07/2018 [facility] Respitory Rate 16 04/07/2018 [facility] Temperature Oral (F) 97.3 F 04/07/2018 [facility] Systolic (mm Hg) 120 04/07/2018 [facility] Diastolic (mm Hg) 67 04/07/2018 [facility] BMI Calculated 30.25 12/28/2017 [facility] Height 167.64 cm 12/28/2017 [facility] Weight 85 12/28/2017 [facility] Temperature Oral (F) 98.8 F 12/28/2017 [facility] Respitory Rate 16 12/28/2017 [facility] Heart Rate 75 12/28/2017 [facility] Systolic (mm Hg) 111 12/28/2017 [facility] Diastolic (mm Hg) 65 12/28/2017 [facility] Weight 88.636 11/16/2017 [facility] BMI Calculated 31.54 11/16/2017 [facility] Height 167.64 cm 11/16/2017 [facility] Temperature Oral (F) 97.7 F 11/16/2017 [facility] Respitory Rate 16 11/16/2017 [facility] Heart Rate 78 11/16/2017 [facility] Systolic (mm Hg) 120 11/16/2017 [facility] Diastolic (mm Hg) 75 11/16/2017 [facility] Height 170.18 cm 09/15/2017 [facility] Temperature Oral (F) 97.7 F 09/15/2017 [facility] BMI Calculated 30.45 09/15/2017 [facility] Weight 88.182 09/15/2017 [facility] Respitory Rate 14 09/15/2017 [facility] Heart Rate 94 09/15/2017 [facility] Systolic (mm Hg) 157 09/15/2017 [facility] Diastolic (mm Hg) 82 09/15/2017 [facility] Encounters Location Location Details Encounter Type Encounter Number Reason For Visit Attending Provider ADM Date DC Date Status Source Outpatient [id number] MILAGRO CANTOR 09/09/2016 Active [facility] Outpatient [id number] MILAGRO CANTOR 10/30/2016 Active [facility] Outpatient [id number] KAROLINA ROSS 12/14/2016 Active [facility] Outpatient [id number] MILAGRO CANTOR 01/01/2017 Active [facility] OP Therapy Patients [id number] Milagro Cantor 01/13/2017 02/12/2017 [facility] Outpatient [id number] MILAGRO CANTOR 03/22/2017 Active [facility] Out[facility] [id number] MILAGRO CANTOR 05/07/2017 Active [facility] Outpatient [id number] MILAGRO CANTOR 05/27/2017 Active [facility] Outpatient [id number] MILAGRO CANTOR 06/21/2017 Active [facility] Outpatient [id number] KAROLINA ROSS 09/15/2017 Active [facility] Outpatient [id number] Milagro Cantor 09/15/2017 09/16/2017 [facility] Outpatient [id number] MILAGRO CANTOR 11/16/2017 Active [facility] Outpatient [id number] Milagro Cantor 11/16/2017 11/17/2017 [facility] Phone Message [id number] 12/24/2017 12/26/2017 [facility] Outpatient [id number] MILAGRO CANTOR 12/28/2017 Active [facility] Outpatient [id number] Milagro Cantor 12/28/2017 12/29/2017 [facility] Phone Message [id number] 12/31/2017 01/02/2018 [facility] Outpatient [id number] MILAGRO CANTOR 04/07/2018 Active [facility] Outpatient [id number] Milagro Cantor 04/07/2018 04/08/2018 [facility] Outpatient [id number] MILAGRO CANTOR 05/31/2018 Active [facility] Outpatient [id number] MILAGRO CANTOR 06/22/2018 Active [facility] Outpatient [id number] MILAGRO CANTOR 08/01/2018 Active [facility]in[facility] Study 7 field stereoscopic fundus photography<sup>1</sup> [id number] 01/27/[address] [facility] Examination of eye<sup>1</sup> [id number] 08/06/2017 Dr [facility]
[2018-07-31] MEDS ORDERED: CITALOPRAM HBR20 MG PO (15:34)
[2018-07-31] MEDS ORDERED: SODIUM CHLORIDE 0.9% 500ML 500 ML IV ONE (15:45)
[2018-07-31 15:51] LABS: BASOPHILS % 0.3 % (0.0-1.0); EOSINOPHILS % 0.3 % (0.0-6.0); HEMATOCRIT 40.6 % (38.2-49.6); HEMOGLOBIN 13.2 g/dL (14.0-18.0); LYMPHOCYTES % 16.1 % (18.0-39.1); MEAN CORPUSCULAR HEMOGLOBIN 29.8 pg (28-32); MEAN CORPUSCULAR HGB CONC 32.5 g/dL (31-35); MEAN CORPUSCULAR VOLUME 91.6 fL (81-99); MONOCYTES # (AUTO) 1.3 (0.2-0.8); NEUTROPHILS # (AUTO) 3.8 (2.1-6.9); NEUTROPHILS % 60.9 % (38.7-80.0); PLATELET COUNT 119 x10e3/uL (140-360); RED BLOOD COUNT 4.43 x10e6/uL (4.3-5.7); RED CELL DISTRIBUTION WIDTH 14.6 % (11.7-14.4)
[2018-07-31 16:07] LABS: INR 0.83; PROTHROMBIN TIME 12.2 seconds (11.9-14.5)
[2018-07-31 16:08] LABS: PARTIAL THROMBOPLASTIN TIME 45.5 seconds (23.8-35.5)
[2018-07-31 16:14] LABS: ALANINE AMINOTRANSFERASE 14 IU/L (0-55); ALBUMIN 3.2 g/dL (3.5-5.0); ALBUMIN/GLOBULIN RATIO 0.9 (0.8-2.0); ALKALINE PHOSPHATASE 331 IU/L (40-150); ANION GAP 15.4 mmol/L (8-16); BLOOD UREA NITROGEN 12 mg/dL (7-26); BUN/CREATININE RATIO 11 (6-25); CALCIUM 9.2 mg/dL (8.4-10.2); CARBON DIOXIDE 25 mmol/L (22-29); CHLORIDE 102 mmol/L (98-107); CREATINE KINASE 13 IU/L (30-200); CREATININE, SERUM 1.11 mg/dL (0.72-1.25); EST GLOMERULAR FILTRATION RATE > 60 ML/MIN (60-); GLUCOSE 158 mg/dL (74-118); POTASSIUM 3.4 mmol/L (3.5-5.1); SODIUM 139 mmol/L (136-145)
[2018-07-31 17:06] LABS: CLARITY,URINE CLEAR (CLEAR); COLOR,URINE YELLOW (YELLOW); LEUKOCYTE ESTERASE ,URINE 1+ (NEGATIVE)
[2018-07-31 17:07] LABS: BACTERIA,URINE FEW /HPF; BILIRUBIN,URINE 2+ (NEGATIVE); EPITHELIAL CELLS,URINE RARE /LPF; KETONES,URINE NEGATIVE (NEGATIVE); NITRITE,URINE NEGATIVE (NEGATIVE); PROTEIN,URINE DIPSTICK TRACE (NEGATIVE); RBC,URINE 0-5 /HPF (0-5); URINE UROBILINOGEN 1 mg/dL (0.2 - 1)
--- NOTE | 2018-07-31 17:31 | Diagnostic Imaging Report ---
EXAMINATION: CHEST SINGLE (PORTABLE) INDICATION: ^cp ^[id number] ^[id number] COMPARISON: Chest radiograph 05/08/2018 FINDINGS: AP view TUBES and LINES: None. LUNGS: Lungs are well inflated. Stable bibasilar atelectasis. No lobar consolidations. Central pulmonary vascular congestion. PLEURA: No pleural effusion or pneumothorax. HEART AND MEDIASTINUM: Mild enlargement of the cardiac silhouette, unchanged. BONES AND SOFT TISSUES: No acute osseous lesion. Soft tissues are unremarkable. UPPER ABDOMEN: No free air under the diaphragm. IMPRESSION: Mild enlargement of the cardiac silhouette with associated central pulmonary vascular congestion. Signed by: Dr. Lyla Landeros M.D. on 07/31/2018 5:28 PM
[2018-07-31 17:46] LABS: LIPASE 4397 U/L (8-78)
[2018-07-31 18:24] LABS: LYMPHOCYTES % (MANUAL) 17 % (19-48); MONOCYTES % (MANUAL) 18 % (3.4-9.0); NEUTROPHILS % (MANUAL) 65 % (40-74)
--- NOTE | 2018-07-31 18:25 | Diagnostic Imaging Report ---
EXAM: CT Chest WITH contrast 07/31/2018 3:29 PM INDICATION: ^abd pain ^[id number] ^1725 COMPARISON: Chest radiograph 07/31/[address] abdomen pelvis 05/08/2018 TECHNIQUE: Chest was scanned utilizing a multidetector helical scanner from the lung apex through the level of the adrenal glands after administration of IV contrast. Coronal and sagittal reformations were obtained. IV CONTRAST: 100 mL Isovue-370 ORAL CONTRAST: None COMPLICATIONS: None RADIATION DOSE: Total DLP: 899.8 mGy*cm Estimated effective dose: (DLP x 0.015 x size factor) mSv CTDIvol has been reviewed. It is below the limits set by the Radiation Protocol Committee (RPC). FINDINGS: LINES/ TUBES: None. LUNGS AND AIRWAYS: Diffuse bilateral septal thickening with faint ground glass opacities suggestive of interstitial edema. Subsegmental atelectasis in both lower lobes with associated mild bronchiectasis. Cluster of centrilobular pulmonary nodules in the posterior right upper lobe on series 4, image 38 suggestive of atypical infection. Bilateral central peribronchial wall thickening due to reactive airway disease. PLEURA: The pleural spaces are clear. HEART AND MEDIASTINUM: The thyroid gland is normal. No mediastinal, hilar or axillary lymphadenopathy. Cardiomegaly. There is no pericardial effusion. Ectasia of the ascending thoracic aorta (4.1 cm). 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 No acute thoracic aorta pathology. Mild scattered atherosclerotic calcifications throughout the aorta UPPER ABDOMEN: Diffuse wall thickening of the gallbladder with surrounding pericholecystic fluid and dilatation of the common bile duct. Extensive fat stranding within the superior abdomen, better seen on coronal view. Mild stenosis of the celiac trunk and SMA. A few scattered bilateral renal cysts. BONES: Mild multilevel degenerative changes of the thoracic spine. SOFT TISSUES: Unremarkable. IMPRESSION: 1. Cluster of few centrilobular pulmonary nodules in the posterior right upper lobe may reflect infection or aspiration. 2. CT findings consistent with acute cholecystitis. Recommend further evaluation with right upper quadrant ultrasound and surgical consultation. These findings are new when compared to 05/08/2018. Signed by: Dr. Lyla Landeros M.D. on 07/31/2018 6:21 PM
[2018-07-31 18:26] LABS: PLATELET MORPHOLOGY COMMENT FEW LARGE; RBC MORPHOLOGY COMMENT NORMAL
[2018-07-31 18:27] LABS: PLATELET ESTIMATE SLIGHTLY DECREASED
--- NOTE | 2018-07-31 18:30 | Diagnostic Imaging Report ---
EXAM: CT Abdomen and Pelvis WITH contrast INDICATION: ^abd pain ^[id number] ^1725 COMPARISON: CT chest 07/31/[address] abdomen pelvis 05/08/2018 TECHNIQUE: Abdomen and pelvis were scanned utilizing a multidetector helical scanner from the lung base to the pubic symphysis after administration of IV contrast. Coronal and sagittal reformations were obtained. Routine protocol was performed. Scan was performed when during portal venous phase. IV CONTRAST: 100 mL of Isovue-300 ORAL CONTRAST: None RADIATION DOSE: Total DLP: 891.8 mGy*cm Estimated effective dose: (DLP x 0.015 x size factor) mSv COMPLICATIONS: None FINDINGS: LINES and TUBES: None. LOWER THORAX: Refer to CT chest report obtained same day. HEPATOBILIARY: No focal hepatic lesions. Dilatation of the common bile duct measuring 0.9 cm in diameter. No intrahepatic biliary duct dilatation. GALLBLADDER: Diffuse wall thickening of the gallbladder with surrounding pericholecystic fluid. No hyperdense stones. SPLEEN: No splenomegaly. PANCREAS: No focal masses or ductal dilatation. Diffuse fat stranding surrounding the pancreas. ADRENALS: No adrenal nodules KIDNEYS/URETERS: Kidneys enhance symmetrically. No hydronephrosis. Bilateral renal cysts with the largest on the right measuring 1.3 cm. No stones. GI TRACT: No abnormal distention, wall thickening, or evidence of bowel obstruction. Appendix is normal. PELVIC ORGANS/BLADDER: The prostate is enlarged and associated with cortical calcifications and resulting in indentation of the base of the urinary bladder. LYMPH NODES: No lymphadenopathy. VESSELS: The abdominal aorta is normal in caliber and associated with mildly scattered atherosclerotic calcifications. Mild stenosis of the celiac trunk and SMA. PERITONEUM / RETROPERITONEUM: Small amount of fat stranding and fluid within the right upper quadrant adjacent to the liver. BONES: Multilevel degenerative changes of the lumbar spine. SOFT TISSUES: Unremarkable. IMPRESSION: Acute cholecystitis with surrounding adjacent fat stranding and small amount of fluid. No hyperdense gallstones. Findings are new when compared to prior exam. This may less likely to represent gallbladder carcinoma. Consider further evaluation with right upper quadrant ultrasound and surgical consultation. Fat stranding surrounding the pancreas may relate to reactive pancreatitis. Correlate with enzymes. Signed by: Dr. Lyla Landeros M.D. on 07/31/2018 6:27 PM
[2018-07-31] MEDS ORDERED: HYDROMORPHONE 1MG/1ML INJ IV PRN (18:45)
[2018-07-31] MEDS ORDERED: CEFTRIAXONE SOD 1 GM VIAL IV SCH (18:45)
[2018-07-31] MEDS ORDERED: MORPHINE SULFATE 2 MG/ML SYR IV PRN (18:45)
--- OUTSIDE RECORDS SUMMARY | 2018-07-31 19:03 | XMS REPORT | Clinical Summary ---
Author Author [facility] Address Unknown Phone Unavailable Care Team Providers Care Environmental Resource Specialist Name Role Phone PCP Unavailable Allergies No [...]
[2018-07-31] MEDS: ONDANSETRON HCL INJ 2 MG/ML VIAL IV PRN (19:45)
[2018-07-31] MEDS ORDERED: SODIUM CHLORIDE 0.9% 50ML 50 ML ONE (19:56)
[2018-07-31] MEDS ORDERED: IOPAMIDOL 370 MG/ML 200 ML INFUS..BTL INJ ONE (19:56)
[2018-07-31 20:15] VITALS: BP 163/73
[2018-07-31 20:38] VITALS: BP 163/73
[2018-07-31 20:55] VITALS: BP 142/72
[2018-07-31 21:22] VITALS: BP 142/72
[2018-07-31] MEDS: PIPER-TAZ 3.375 GM / NS 50ML IV SCH (22:13)
[2018-07-31 23:39] VITALS: BP 143/72
[2018-08-01] MEDS ORDERED: GADOBENATE DIMEGLUMINE 1 ML IV ONE (00:26)
[2018-08-01 02:23] LABS: CREATINE KINASE 26 IU/L (30-200)
--- NOTE | 2018-08-01 02:26 | Diagnostic Imaging Report ---
EXAM: MRI ABDOMEN W/WO WITH MRCP INDICATION: Acute cholecystitis. COMPARISON: . TECHNIQUE: Multiplanar and multisequence MRI imaging was performed of the abdomen. Predominantly using T2 sequences for MRCP. DISCUSSION: LOWER THORAX: Unremarkable. HEPATOBILIARY: No focal hepatic lesions. Mild intrahepatic and extra by biliary dilatation with the CBD measuring 1 cm in diameter containing a distal CBD stone measuring 8 mm in diameter . GALLBLADDER: Diffuse irregular circumferential wall thickening of the gallbladder. There is at least a single gallstone present in the gallbladder fundus measuring 2 cm in maximum dimension best seen on series 8, image 19. SPLEEN: No splenomegaly. PANCREAS: No focal masses or ductal dilatation. ADRENALS: No adrenal nodules KIDNEYS/URETERS: Kidneys enhance symmetrically. No hydronephrosis. There are scattered simple cysts throughout the kidneys. GI TRACT: No abnormal distention, wall thickening, or evidence of bowel obstruction. LYMPH NODES: No lymphadenopathy. VESSELS: Unremarkable. PERITONEUM / RETROPERITONEUM: Small amount of free fluid in the abdomen. BONES: Unremarkable. SOFT TISSUES: Unremarkable. IMPRESSION: 1. Extrahepatic biliary dilatation with evidence of distal CBD stone measuring 8 mm in diameter. 2. Circumferential, irregular gallbladder wall thickening with a 2 cm stone in the fundus suggestive of acute cholecystitis Signed by: Dr. Tomi Zamudio M.D. on 08/01/2018 2:23 AM
[2018-08-01] MEDS ORDERED: LACTATED RINGER'S 1,000 ML IV ONE ×2 (03:00)
[2018-08-01 04:27] VITALS: BP 148/74
[2018-08-01 05:08] LABS: BASOPHILS % 0.3 % (0.0-1.0); EOSINOPHILS % 0.3 % (0.0-6.0); HEMATOCRIT 38.1 % (38.2-49.6); HEMOGLOBIN 12.4 g/dL (14.0-18.0); LYMPHOCYTES # (AUTO) 1.4 (1.0-3.2); LYMPHOCYTES % 20.9 % (18.0-39.1); MEAN CORPUSCULAR HGB CONC 32.5 g/dL (31-35); MEAN CORPUSCULAR VOLUME 92.3 fL (81-99); MONOCYTES # (AUTO) 1.6 (0.2-0.8); MONOCYTES % 23.5 % (4.4-11.3); NEUTROPHILS # (AUTO) 3.6 (2.1-6.9); NEUTROPHILS % 52.6 % (38.7-80.0); PLATELET COUNT 94 x10e3/uL (140-360); RED BLOOD COUNT 4.13 x10e6/uL (4.3-5.7); RED CELL DISTRIBUTION WIDTH 14.6 % (11.7-14.4)
[2018-08-01 05:30] LABS: ALANINE AMINOTRANSFERASE 17 IU/L (0-55); ALBUMIN 2.8 g/dL (3.5-5.0); ALKALINE PHOSPHATASE 292 IU/L (40-150); ANION GAP 14.5 mmol/L (8-16); BLOOD UREA NITROGEN 10 mg/dL (7-26); BUN/CREATININE RATIO 11 (6-25); CALCIUM 8.7 mg/dL (8.4-10.2); CARBON DIOXIDE 25 mmol/L (22-29); CHLORIDE 104 mmol/L (98-107); CREATININE, SERUM 0.94 mg/dL (0.72-1.25); EST GLOMERULAR FILTRATION RATE > 60 ML/MIN (60-); GLUCOSE 73 mg/dL (74-118); LIPASE 946 U/L (8-78); POTASSIUM 3.5 mmol/L (3.5-5.1); SODIUM 140 mmol/L (136-145)
[2018-08-01 05:50] LABS: INR 0.9
[2018-08-01 05:51] LABS: PARTIAL THROMBOPLASTIN TIME 42.2 seconds (23.8-35.5)
[2018-08-01] MEDS: PIPER-TAZ 3.375 GM / NS 50ML IV SCH ×3 (05:51→21:33)
[2018-08-01] MEDS ORDERED: METRONIDAZOLE 500MG/NS 100ML 100 ML IV SCH (06:00)
[2018-08-01 08:00] VITALS: BP 156/73
[2018-08-01] MEDS ORDERED: HYDRALAZINE HCL 20 MG/ML VIAL IV PRN (08:45)
[2018-08-01] MEDS ORDERED: DEXTROSE 50% SYRINGE 50 ML IV PRN (08:45)
[2018-08-01] MEDS ORDERED: ALBUTEROL/IPRATROPIUM 3 ML NEB NEB PRN (08:45)
[2018-08-01] MEDS: CARBIDOPA/LEVODOPA 25/100 TAB PO SCH ×3 (09:00→20:26)
[2018-08-01] MEDS: TAMSULOSIN HCL 0.4 MG CAP PO SCH (09:00)
[2018-08-01] MEDS: DEXTROSE 5%/0.9% SOD CHL 1,000 ML IV SCH ×2 (09:00→16:00)
[2018-08-01] MEDS: PANTOPRAZOLE 40 MG 10ML VIAL IV SCH ×2 (09:33→20:26)
[2018-08-01] MEDS ORDERED: SINCALIDE 3 MCG/VIAL INJ ONE (09:44)
--- NOTE | 2018-08-01 10:05 | History and Physical ---
PRIMARY CARE PROVIDER: Dr. Milagro Lemus CONSULTANTS: Dr. Petr Aguilar and Dr. Ashok Wright. CHIEF COMPLAINT: Abdominal pain. HISTORY: Patient is an 87-year-old male with multiple medical problems, including diabetes, type 2, COPD, osteoarthritis, peripheral neuropathy secondary to diabetes, hypertension, came into the hospital with increasing abdominal pain. The patient has COPD at baseline. He complains of increasing abdominal pain acutely. Patient came in and multiple workup done. His abdominal pain is associated with increase in amylase of 1064 and lipase of 4397. This morning is 946. The patient also had multiple imaging tests done, including MRCP. The test showed extrahepatic biliary dilatation with evidence of distal common bile duct stone measuring 8 mm in diameter. There is circumferential irregular gallbladder wall thickening with a 2-cm stone in the fundus suggestive of acute cholecystitis. The patient is otherwise stable at this time. PAST MEDICAL HISTORY: COPD, hypertension, diabetes, type 2, dyslipidemia, anxiety, depression, hypothyroidism, reflux, osteoarthritis, enlarged prostate, Parkinson disease. PAST SURGICAL HISTORY: Noncontributory. SOCIAL HISTORY: Patient does not smoke or use alcohol. No recreational drugs. ALLERGIES: NO KNOWN ALLERGIES. HOME MEDICATIONS: Albuterol, Sinemet, Celexa, Amaryl, levothyroxine, losartan, omeprazole, Flomax, and Breo. REVIEW OF SYSTEMS: Abdominal pain. No nausea or vomiting. PHYSICAL EXAMINATION VITAL SIGNS: Temperature is 98, blood pressure 148/74, pulse rate 69, respirations 18. GENERAL: The patient is not in acute distress. He is awake. HEENT: Normocephalic, atraumatic and anicteric. NECK: Supple grossly. PULMONARY: Diminished breath sounds. CARDIOVASCULAR: S1 and S2. Regular rate and rhythm. ABDOMEN: Soft. Tenderness. No distention. EXTREMITIES: No cyanosis or edema. NEUROLOGICAL: No gross focal deficit. LABORATORY: Sodium 140, potassium 3.5, chloride 104, bicarb 25, BUN 10, creatinine 0.9, glucose 73. WBC 6.8, hemoglobin 12.4, hematocrit 38.1, and platelets is 94,000. IMAGING TESTS: MRCP of abdominal and pelvic CT scan, chest CT showed acute cholecystitis with common bile duct distal stone. Gallstone pancreatitis. Pulmonary central lobular pulmonary nodule. May reflect infection versus aspiration and COPD. IMPRESSION 1. Acute blood cholecystitis associated with gallstone pancreatitis. 2. Baseline chronic obstructive pulmonary disease. 3. Baseline hypertension. 4. Parkinson disease. 5. Diabetes, type 2. 6. Dyslipidemia. PLAN: IV antibiotics. IV fluids gently. Monitor for any vascular congestion. Continue to monitor the patient's electrolytes. The patient will need ERCP to remove stone and subsequent cholecystectomy. Dr. Petr Aguilar has been consulted along with Dr. Ashok Wright. Job#: [id number] RI
[2018-08-01 10:17] LABS: CREATINE KINASE 10 IU/L (30-200)
[2018-08-01] MEDS: LEVOTHYROXINE SODIUM 25 MCG TABLET PO SCH (11:30)
[2018-08-01] MEDS ORDERED: MORPHINE SULFATE 2 MG/ML SYR ONE (11:34)
--- NOTE | 2018-08-01 11:54 | Diagnostic Imaging Report ---
EXAM: RUQ ULTRASOUND Date: 08/01/2018 8:00 AM Indication: Right upper quadrant pain Comparison: None Technique: Sonographic evaluation of the right upper quadrant. Color doppler was utilized to supplement evaluation. FINDINGS: LIVER: No focal lesion is identified. The liver measures 14.7 cm in the right midclavicular line. Echotexture is normal. BILIARY: Moderate sludge present. Gallbladder wall upper limits of normal 3 mm. No pericholecystic fluid identified. No sonographic Acosta sign identified. The common bile duct measures 0.6 cm. PANCREAS: Obscured by bowel gas. RIGHT KIDNEY: Measures 10.4 cm in length. No hydronephrosis or solid mass lesion identified. 1.6 cm simple appearing cyst inferiorly. PERITONEUM: No free fluid. VASCULATURE: Aorta: Obscured by bowel gas. Interior vena cava: Obscured by bowel gas. Portal Vein: Nondilated with hepatopedal flow. IMPRESSION: Moderate gallbladder sludge. Gallbladder wall upper limits of normal. Clinical and laboratory correlation for cholecystitis recommended. Signed by: Dr. German Diaz MD on 08/01/2018 11:50 AM
[2018-08-01 12:00] VITALS: BP 166/82
[2018-08-01] MEDS: INSULIN LISPRO 100 UNIT/1 ML 3ML VIAL SQ SCH ×2 (12:00→17:06)
[2018-08-01] MEDS ORDERED: IOPAMIDOL 610MG/1ML 300 MG/ML VIAL IV ONE (13:31)
[2018-08-01 13:32] LABS: ANISOCYTOSIS SLIGHT; BAND NEUTROPHILS % (MANUAL) 2 %; LYMPHOCYTES % (MANUAL) 21 % (19-48); MONOCYTES % (MANUAL) 11 % (3.4-9.0); NEUTROPHILS % (MANUAL) 56 % (40-74); PLATELET ESTIMATE ADEQUATE; PLATELET MORPHOLOGY COMMENT NORMAL; RBC MORPHOLOGY COMMENT NORMAL
[2018-08-01] MEDS ORDERED: INDOMETHACIN 50 MG SUPP.RECT RC ONE (13:32)
[2018-08-01] MEDS ORDERED: LIDOCAINE HCL (LTA) 4 ML SOLN ONE (13:32)
[2018-08-01 15:50] VITALS: BP 153/73
--- NOTE | 2018-08-01 17:39 | Operative Report ---
DATE OF PROCEDURE: August 01, 2018 REFERRING PHYSICIAN: Dr. Mathieu Weinberg. PROCEDURE PERFORMED: Endoscopic retrograde cholangiopancreatography. INDICATIONS FOR PROCEDURE: Jaundice, choledocholithiasis on MRCP. MEDICATION: Patient was done under general endotracheal anesthesia. Please see anesthesiologist's note. PROCEDURE: With the patient in the left lateral decubitus position, the flexible fiberoptic Olympus side-viewing scope was introduced into the esophagus and advanced all the way to the 2nd portion of the duodenum. The ampulla was identified, and it was edematous and friable. An approximately 6 cm stone was noted in the periampullary area and appeared to have extruded spontaneously from the common bile duct. An attempt to cannulate the ampulla was carried out, and there was some opacification of the pancreatic duct inadvertently. Also, the common bile duct was partially opacified. No additional attempt at cannulating was carried out, as the ampulla was edematous and patient already has pancreatitis, to avoid exacerbating his pancreatitis. The scope was subsequently withdrawn. Patient tolerated the procedure well. IMPRESSION: 1. Ampulla edematous, friable. 2. Stone appears to have spontaneously passed. 3. Common bile duct partially opacified. 4. Pancreatic duct inadvertently opacified and appeared grossly within normal limits. PLAN: Follow LFTs. Patient might benefit from an intraoperative cholangiogram during his lap raina. Job#: [id number] EV cc:MD SHENA LANDON M.D.
--- NOTE | 2018-08-01 18:45 | Diagnostic Imaging Report ---
HEPATOBILIARY SCAN INDICATION: RUQ abdominal pain; 2 cm gallstone; pancreatitis Report: Following the administration of 7 mCi of Tc-99m mebrofenin, dynamic images of the abdomen in the anterior projection were obtained through 60 minutes. Perfusion of the liver is normal. Extraction of tracer from the blood pool by the liver parenchyma is mildly prolonged but sufficient tracer is taken up by the hepatocytes. Tracer does not appear in the biliary tract through 60 minutes. Impression: Scan shows cholestasis. No tracer is seen in the biliary tract so gallbladder filling cannot be assessed. Signed by: Dr. Emily Balderas M.D. on 08/01/2018 6:42 PM
[2018-08-01 19:29] VITALS: BP 147/71
[2018-08-01 20:42] VITALS: BP 147/71
[2018-08-01 23:45] LABS: EOSINOPHILS % 0.2 % (0.0-6.0); HEMATOCRIT 34.6 % (38.2-49.6); HEMOGLOBIN 11.4 g/dL (14.0-18.0); LYMPHOCYTES # (AUTO) 0.7 (1.0-3.2); LYMPHOCYTES % 12.1 % (18.0-39.1); MEAN CORPUSCULAR HEMOGLOBIN 29.9 pg (28-32); MEAN CORPUSCULAR HGB CONC 32.9 g/dL (31-35); MEAN CORPUSCULAR VOLUME 90.8 fL (81-99); MONOCYTES # (AUTO) 1.3 (0.2-0.8); MONOCYTES % 21.5 % (4.4-11.3); NEUTROPHILS # (AUTO) 3.7 (2.1-6.9); PLATELET COUNT 87 x10e3/uL (140-360); RED BLOOD COUNT 3.81 x10e6/uL (4.3-5.7); RED CELL DISTRIBUTION WIDTH 14.5 % (11.7-14.4)
[2018-08-02] LABS: ALANINE AMINOTRANSFERASE 6 IU/L (0-55); ALBUMIN 2.5 g/dL (3.5-5.0); ALBUMIN/GLOBULIN RATIO 0.9 (0.8-2.0); ALKALINE PHOSPHATASE 262 IU/L (40-150); ANION GAP 13.1 mmol/L (8-16); BLOOD UREA NITROGEN 11 mg/dL (7-26); BUN/CREATININE RATIO 12 (6-25); CALCIUM 8.3 mg/dL (8.4-10.2); CARBON DIOXIDE 21 mmol/L (22-29); CHLORIDE 107 mmol/L (98-107); CREATININE, SERUM 0.89 mg/dL (0.72-1.25); EST GLOMERULAR FILTRATION RATE > 60 ML/MIN (60-); GLUCOSE 111 mg/dL (74-118); POTASSIUM 3.1 mmol/L (3.5-5.1); SODIUM 138 mmol/L (136-145)
[2018-08-02] MEDS: DEXTROSE 5%/0.9% SOD CHL 1,000 ML IV SCH ×2 (00:31→07:30)
[2018-08-02 01:06] VITALS: BP 117/60
[2018-08-02 04:18] VITALS: BP_SYST 117; BP_DIAS 64; BP_DIAS 73
[2018-08-02 05:06] LABS: BASOPHILS % 0.1 % (0.0-1.0); EOSINOPHILS % 0.3 % (0.0-6.0); HEMATOCRIT 34.6 % (38.2-49.6); HEMOGLOBIN 11.4 g/dL (14.0-18.0); LYMPHOCYTES # (AUTO) 0.6 (1.0-3.2); LYMPHOCYTES % 8.3 % (18.0-39.1); MEAN CORPUSCULAR HEMOGLOBIN 30.1 pg (28-32); MEAN CORPUSCULAR HGB CONC 32.9 g/dL (31-35); MEAN CORPUSCULAR VOLUME 91.3 fL (81-99); MONOCYTES # (AUTO) 1.7 (0.2-0.8); MONOCYTES % 24.5 % (4.4-11.3); NEUTROPHILS # (AUTO) 4.4 (2.1-6.9); NEUTROPHILS % 64.7 % (38.7-80.0); PLATELET COUNT 78 x10e3/uL (140-360); RED BLOOD COUNT 3.79 x10e6/uL (4.3-5.7); RED CELL DISTRIBUTION WIDTH 14.4 % (11.7-14.4)
[2018-08-02 05:27] LABS: ALANINE AMINOTRANSFERASE 11 IU/L (0-55); ALBUMIN 2.3 g/dL (3.5-5.0); ALBUMIN/GLOBULIN RATIO 0.9 (0.8-2.0); ALKALINE PHOSPHATASE 240 IU/L (40-150); ANION GAP 8.9 mmol/L (8-16); BLOOD UREA NITROGEN 11 mg/dL (7-26); BUN/CREATININE RATIO 12 (6-25); CALCIUM 8.2 mg/dL (8.4-10.2); CARBON DIOXIDE 26 mmol/L (22-29); CHLORIDE 105 mmol/L (98-107); CREATININE, SERUM 0.92 mg/dL (0.72-1.25); EST GLOMERULAR FILTRATION RATE > 60 ML/MIN (60-); GLUCOSE 116 mg/dL (74-118); LIPASE 104 U/L (8-78); SODIUM 137 mmol/L (136-145)
[2018-08-02 05:47] LABS: THYROID STIMULATING HORMONE 2.342 uIU/mL (0.350-4.940)
[2018-08-02 05:52] LABS: POTASSIUM 2.9 mmol/L (3.5-5.1)
[2018-08-02] MEDS: LEVOTHYROXINE SODIUM 25 MCG TABLET PO SCH (05:53)
[2018-08-02] MEDS: INSULIN LISPRO 100 UNIT/1 ML 3ML VIAL SQ SCH ×4 (05:53→17:16)
[2018-08-02] MEDS: PIPER-TAZ 3.375 GM / NS 50ML IV SCH ×3 (05:53→21:54)
[2018-08-02] MEDS ORDERED: POTASSIUM CHLORIDE 20 MEQ TAB CR PO ONE ×2 (06:00→08:00)
[2018-08-02] MEDS ORDERED: LEVOTHYROXINE SODIUM 50 MCG TAB PO SCH (06:30)
[2018-08-02 07:50] VITALS: BP 125/83
[2018-08-02] MEDS: PANTOPRAZOLE 40 MG 10ML VIAL IV SCH ×2 (08:05→20:43)
[2018-08-02] MEDS: TAMSULOSIN HCL 0.4 MG CAP PO SCH (08:05)
[2018-08-02] MEDS: CARBIDOPA/LEVODOPA 25/100 TAB PO SCH ×3 (08:05→20:43)
[2018-08-02 08:55] LABS: EOSINOPHILS % (MANUAL) 1 % (0-7); LYMPHOCYTES % (MANUAL) 5 % (19-48); MONOCYTES % (MANUAL) 26 % (3.4-9.0); NEUTROPHILS % (MANUAL) 67 % (40-74)
[2018-08-02 08:56] LABS: ANISOCYTOSIS SLIGHT; PLATELET ESTIMATE SLIGHTLY DECREASED; PLATELET MORPHOLOGY COMMENT FEW LARGE; RBC MORPHOLOGY COMMENT NORMAL
[2018-08-02 11:49] VITALS: BP 123/64
[2018-08-02] MEDS: D5NS/KCL 20MEQ 1,000 ML IV SCH ×3 (12:00→21:55)
[2018-08-02 16:01] VITALS: BP 125/69
[2018-08-02 21:00] VITALS: BP 145/66
--- NOTE | 2018-08-02 23:16 | Consultation ---
DATE OF CONSULTATION: August 02, 2018 CHIEF COMPLAINT: Abdominal pain. HISTORY OF PRESENT ILLNESS: Patient is an 87-year-old male with 2-week history of abdominal pain in the right upper quadrant, worsening with deep breathing. Patient denies vomiting, but admits to some nausea. No fever, chills, or diarrhea. PAST MEDICAL HISTORY: Significant for metabolic syndrome with COPD, hypothyroidism, reflux, and Parkinson. SURGICAL HISTORY: Unremarkable. DRUG ALLERGIES: NONE KNOWN. SOCIAL HABITS: The patient does not smoke or drink alcohol. REVIEW OF SYSTEMS: As mentioned, mild shortness of breath and cough. No chest pain. No fever. PHYSICAL EXAMINATION VITAL SIGNS: Stable. Afebrile. GENERAL: Patient is awake, alert, in moderate discomfort. HEENT: Positive icterus. NECK: Supple. LUNGS: Clear. HEART: Regular rate and rhythm. ABDOMEN: Soft with guarding tenderness, right upper quadrant, without rebound. EXTREMITIES: No cyanosis or edema. LABS: White cell count is 6.8, hemoglobin 11, and platelet count is 78,000. Creatinine 0.9, bilirubin 8.3, and alkaline phosphatase 240. Lipase is 104. MRI shows gallstones with bile duct stone. ERCP shows that the stone has passed into the intestine. ASSESSMENT 1. Cholelithiasis and cholecystitis. 2. Probable passage of gallstone. PLAN: Laparoscopic cholecystectomy with intraoperative cholangiogram. All attendant risks discussed with patient and family. Job#: [id number]
[2018-08-03] VITALS (17 sets, daily range): BP systolic 105–165; BP diastolic 65–102
[2018-08-03] MEDS: INSULIN LISPRO 100 UNIT/1 ML 3ML VIAL SQ SCH ×4 (00:32→17:23)
[2018-08-03 04:56] LABS: BASOPHILS % 0.2 % (0.0-1.0); EOSINOPHILS % 0.5 % (0.0-6.0); HEMATOCRIT 32.2 % (38.2-49.6); HEMOGLOBIN 10.3 g/dL (14.0-18.0); LYMPHOCYTES % 16.3 % (18.0-39.1); MEAN CORPUSCULAR HEMOGLOBIN 29.8 pg (28-32); MEAN CORPUSCULAR VOLUME 93.1 fL (81-99); MONOCYTES # (AUTO) 1.4 (0.2-0.8); MONOCYTES % 23.7 % (4.4-11.3); NEUTROPHILS # (AUTO) 3.2 (2.1-6.9); NEUTROPHILS % 54.8 % (38.7-80.0); PLATELET COUNT 81 x10e3/uL (140-360); RED BLOOD COUNT 3.46 x10e6/uL (4.3-5.7); RED CELL DISTRIBUTION WIDTH 14.8 % (11.7-14.4)
[2018-08-03 05:16] LABS: ALANINE AMINOTRANSFERASE 9 IU/L (0-55); ALBUMIN 2.1 g/dL (3.5-5.0); ALBUMIN/GLOBULIN RATIO 0.8 (0.8-2.0); ALKALINE PHOSPHATASE 193 IU/L (40-150); ANION GAP 7.8 mmol/L (8-16); BLOOD UREA NITROGEN 10 mg/dL (7-26); BUN/CREATININE RATIO 11 (6-25); CALCIUM 7.8 mg/dL (8.4-10.2); CARBON DIOXIDE 24 mmol/L (22-29); CHLORIDE 108 mmol/L (98-107); EST GLOMERULAR FILTRATION RATE > 60 ML/MIN (60-); GLUCOSE 129 mg/dL (74-118); SODIUM 136 mmol/L (136-145)
[2018-08-03 05:17] LABS: POTASSIUM 3.8 mmol/L (3.5-5.1)
[2018-08-03] MEDS: D5NS/KCL 20MEQ 1,000 ML IV SCH ×3 (05:45→18:12)
[2018-08-03] MEDS: PIPER-TAZ 3.375 GM / NS 50ML IV SCH ×3 (05:47→21:35)
[2018-08-03] MEDS: LEVOTHYROXINE SODIUM 25 MCG TABLET PO SCH (05:48)
[2018-08-03 06:19] LABS: AMYLASE 80 U/L (25-125); LIPASE 73 U/L (8-78)
[2018-08-03 06:34] LABS: MAGNESIUM 1.6 MG/DL (1.3-2.1); PHOSPHORUS 1.5 MG/DL (2.3-4.7)
[2018-08-03] MEDS ORDERED: BUPIVACAINE 0.25%/EPI 30ML SDV INJ ONE (07:30)
[2018-08-03] MEDS ORDERED: IOPAMIDOL 610MG/1ML 300 MG/ML VIAL IV ONE (07:32)
--- NOTE | 2018-08-03 08:36 | Diagnostic Imaging Report ---
Exam: ERCP dated 08/01/2018 History: Stones Comparison: MRCP same date. Findings: There is mild biliary dilatation. Single image shows a filling defect in the mid common bile duct. Fluoroscopy time not specified. Impression: Possible mid common bile duct stone. Signed by: Dr. Som Encarnacion DO on 08/03/2018 8:33 AM
[2018-08-03] MEDS: TAMSULOSIN HCL 0.4 MG CAP PO SCH (09:00)
[2018-08-03] MEDS: PANTOPRAZOLE 40 MG 10ML VIAL IV SCH ×2 (09:00→21:35)
[2018-08-03] MEDS: CARBIDOPA/LEVODOPA 25/100 TAB PO SCH ×3 (09:00→21:00)
[2018-08-03] MEDS ORDERED: FENTANYL CITRATE/PF 100MCG/2 ML INJ ONE ×2 (09:59→15:56)
[2018-08-03] MEDS ORDERED: ALBUTEROL SULF 0.083% NEB SOLN 3 ML NEB ONE (10:07)
[2018-08-03] MEDS ORDERED: HYDROMORPHONE 2MG/ML 2 MG/ML ML ONE (10:26)
--- NOTE | 2018-08-03 11:02 | Operative Report ---
DATE OF PROCEDURE: August 03, 2018 PREOPERATIVE DIAGNOSIS: Cholecystitis. POSTOPERATIVE DIAGNOSIS: Cholecystitis. OPERATIVE PROCEDURES 1. Partial cholecystectomy. 2. Placement of cholecystostomy tube drainage. ANESTHESIA: General endotracheal. INDICATIONS: The patient is an 87-year-old male with a history of abdominal pain and jaundice. Workup showed cholecystitis with possible gallstones and bile duct stones. ERCP was done showing clearance of bile duct with passage of stone. The patient then consented for laparoscopic cholecystectomy with all attendant risks discussed. PROCEDURE FINDINGS: Severe necrotic changes of the gallbladder fundus with intraluminal mass suggestive of neoplastic process. DESCRIPTION OF PROCEDURE: Patient was brought to the OR intubated. Abdomen was prepped and draped in a sterile fashion. Infraumbilical incision is made, and a 5-mm port inserted. Insufflation then began. Other ports were then placed in the midepigastric and right upper quadrant. Gallbladder completely walled off by inflammatory process with adherence to the anterior abdominal wall and liver edge. With blunt and sharp dissection, we proceeded to take down adhesions. However, the adhesions were significantly thickened and hard. Therefore, a decision was made to open conversion. Subcostal incision is made going through the anterior and posterior fascia 2 fingerbreadths below the costal margin. Upon entering the peritoneal cavity, the inflammatory process involving the gallbladder area is bluntly dissected. The colon was from the fundus. As the phlegmon is , there is some bilious material from the gallbladder fundus suggesting disruption of the gallbladder wall. Intraluminally, there was some necrotic changes suggestive of neoplastic process, which was biopsied. We looked for a stone in the neck of the gallbladder. However, it was obliterated by the inflammatory process. At this point, decision is made to partially remove the gallbladder wall near the fundus and submit it for pathology. A 19-Luxembourger Ahmet drain placed in the remnant gallbladder and taken out through a separate stab wound incision in the right lower quadrant. The omentum was also brought to fill up the gallbladder fossa, and stitched in place with a 3-0 Vicryl stitch. Operative field was irrigated. Hemostasis achieved. We then closed the wound in layers with running 0 Vicryl for the posterior fascia and running 0 PDS for the anterior fascia. The skin was closed with ayala. Patient was then extubated and transported in guarded condition to the recovery room. Estimated blood loss 20 mL. Job#: [id number] RI
[2018-08-03] MEDS: HYDROMORPHONE 2MG/ML 2 MG/ML ML IV PRN ×2 (13:20→18:12)
[2018-08-04] VITALS (8 sets, daily range): BP systolic 97–162; BP diastolic 69–83
[2018-08-04] MEDS ORDERED: ACETAMINOPHEN 325 MG TAB PO PRN
[2018-08-04] MEDS: D5NS/KCL 20MEQ 1,000 ML IV SCH ×5 (00:45→20:59)
[2018-08-04] MEDS: HYDROMORPHONE 2MG/ML 2 MG/ML ML IV PRN (02:40)
[2018-08-04] MEDS: PIPER-TAZ 3.375 GM / NS 50ML IV SCH ×3 (05:15→22:00)
[2018-08-04] MEDS: LEVOTHYROXINE SODIUM 25 MCG TABLET PO SCH (05:15)
[2018-08-04] MEDS: INSULIN LISPRO 100 UNIT/1 ML 3ML VIAL SQ SCH ×4 (05:31→17:01)
[2018-08-04] MEDS: TAMSULOSIN HCL 0.4 MG CAP PO SCH (09:00)
[2018-08-04] MEDS: PANTOPRAZOLE 40 MG 10ML VIAL IV SCH ×2 (09:00→20:59)
[2018-08-04] MEDS: CARBIDOPA/LEVODOPA 25/100 TAB PO SCH ×3 (09:00→20:59)
[2018-08-04] MEDS ORDERED: ONDANSETRON HCL INJ 2 MG/ML VIAL IV ONE (12:49)
[2018-08-04] MEDS ORDERED: SUCCINYLCHOLINE 200 MG/10 ML SYR IV ONE (12:49)
[2018-08-04] MEDS ORDERED: LIDOCAINE HCL 2% LOCAL INJ 5 ML SDV VIAL INJ ONE (12:49)
[2018-08-04] MEDS ORDERED: PROPOFOL IV EMULSION 10 MG/ML 20 ML VIAL IV ONE (12:49)
[2018-08-04] MEDS ORDERED: NEOSTIGMINE 5 MG/5ML SYR IV ONE (12:49)
[2018-08-04] MEDS ORDERED: SEVOFLURANE INHAL SOLN 250 ML PEN BTL INH ONE (12:49)
[2018-08-04] MEDS ORDERED: GLYCOPYRROLATE INJ 1MG/ 5 ML SYR IV ONE (12:49)
[2018-08-04 15:41] LABS: ALBUMIN 2.3 g/dL (3.5-5.0); ALBUMIN/GLOBULIN RATIO 0.7 (0.8-2.0); ANION GAP 12.2 mmol/L (8-16); CALCIUM 8.1 mg/dL (8.4-10.2); CREATININE, SERUM 1.57 mg/dL (0.72-1.25); POTASSIUM 4.2 mmol/L (3.5-5.1)
[2018-08-05] MEDS: HYDROMORPHONE 2MG/ML 2 MG/ML ML IV PRN (01:18)
[2018-08-05 03:00] VITALS: BP 142/80
[2018-08-05] MEDS: D5NS/KCL 20MEQ 1,000 ML IV SCH ×4 (03:25→23:25)
[2018-08-05] MEDS: PIPER-TAZ 3.375 GM / NS 50ML IV SCH ×3 (05:23→21:48)
[2018-08-05 05:28] LABS: ALBUMIN 2.1 g/dL (3.5-5.0); ALBUMIN/GLOBULIN RATIO 0.7 (0.8-2.0); ANION GAP 11.1 mmol/L (8-16); CREATININE, SERUM 1.25 mg/dL (0.72-1.25); POTASSIUM 4.1 mmol/L (3.5-5.1)
[2018-08-05] MEDS: INSULIN LISPRO 100 UNIT/1 ML 3ML VIAL SQ SCH ×4 (05:32→17:03)
[2018-08-05] MEDS: LEVOTHYROXINE SODIUM 25 MCG TABLET PO SCH (05:32)
[2018-08-05 06:00] VITALS: BP 150/77
[2018-08-05 08:00] VITALS: BP 161/84
[2018-08-05] MEDS: PANTOPRAZOLE 40 MG 10ML VIAL IV SCH ×2 (09:33→21:30)
[2018-08-05] MEDS: CARBIDOPA/LEVODOPA 25/100 TAB PO SCH ×3 (09:33→21:30)
[2018-08-05] MEDS: TAMSULOSIN HCL 0.4 MG CAP PO SCH (09:33)
[2018-08-05 12:00] VITALS: BP 156/69
[2018-08-05 15:58] VITALS: BP 152/78
[2018-08-05] MEDS ORDERED: MAGNESIUM HYDROXIDE 30 ML UDC PO NR (16:45)
[2018-08-05 20:00] VITALS: BP 146/71
[2018-08-06] VITALS: BP 152/91
[2018-08-06 04:00] VITALS: BP 151/80
[2018-08-06] MEDS: D5NS/KCL 20MEQ 1,000 ML IV SCH ×2 (06:05→13:02)
[2018-08-06] MEDS: PIPER-TAZ 3.375 GM / NS 50ML IV SCH ×3 (06:30→21:20)
[2018-08-06] MEDS: LEVOTHYROXINE SODIUM 25 MCG TABLET PO SCH (06:30)
[2018-08-06 07:00] VITALS: BP 128/73
[2018-08-06 07:03] LABS: ALANINE AMINOTRANSFERASE 9 IU/L (0-55); ALBUMIN 1.9 g/dL (3.5-5.0); ALBUMIN/GLOBULIN RATIO 0.7 (0.8-2.0); ALKALINE PHOSPHATASE 127 IU/L (40-150); BLOOD UREA NITROGEN 9 mg/dL (7-26); BUN/CREATININE RATIO 10 (6-25); CALCIUM 7.7 mg/dL (8.4-10.2); CARBON DIOXIDE 23 mmol/L (22-29); CHLORIDE 109 mmol/L (98-107); EST GLOMERULAR FILTRATION RATE > 60 ML/MIN (60-); GLUCOSE 179 mg/dL (74-118); SODIUM 136 mmol/L (136-145)
[2018-08-06] MEDS: INSULIN LISPRO 100 UNIT/1 ML 3ML VIAL SQ SCH ×6 (09:13→21:49)
[2018-08-06] MEDS: CARBIDOPA/LEVODOPA 25/100 TAB PO SCH ×3 (09:15→21:19)
[2018-08-06] MEDS: TAMSULOSIN HCL 0.4 MG CAP PO SCH (09:15)
[2018-08-06] MEDS: PANTOPRAZOLE 40 MG 10ML VIAL IV SCH (09:15)
[2018-08-06 17:06] VITALS: BP 149/67
[2018-08-06] MEDS: HYDROMORPHONE 2MG/ML 2 MG/ML ML IV PRN (18:30)
[2018-08-06] MEDS: ONDANSETRON HCL INJ 2 MG/ML VIAL IV PRN (18:30)
[2018-08-06 20:00] VITALS: BP 140/67
[2018-08-06 23:41] VITALS: BP 140/67
[2018-08-07] VITALS: BP 140/66
[2018-08-07] MEDS: D5NS/KCL 20MEQ 1,000 ML IV SCH (02:43)
[2018-08-07 04:00] VITALS: BP 140/65
[2018-08-07] MEDS: LEVOTHYROXINE SODIUM 25 MCG TABLET PO SCH (05:21)
[2018-08-07] MEDS: PIPER-TAZ 3.375 GM / NS 50ML IV SCH (05:21)
[2018-08-07 06:28] LABS: BASOPHILS % 0.2 % (0.0-1.0); HEMATOCRIT 30.4 % (38.2-49.6); HEMOGLOBIN 9.6 g/dL (14.0-18.0); LYMPHOCYTES # (AUTO) 0.8 (1.0-3.2); LYMPHOCYTES % 19.4 % (18.0-39.1); MEAN CORPUSCULAR HEMOGLOBIN 29.4 pg (28-32); MEAN CORPUSCULAR HGB CONC 31.6 g/dL (31-35); MONOCYTES # (AUTO) 0.7 (0.2-0.8); MONOCYTES % 15.8 % (4.4-11.3); NEUTROPHILS # (AUTO) 2.5 (2.1-6.9); PLATELET COUNT 83 x10e3/uL (140-360); RED BLOOD COUNT 3.27 x10e6/uL (4.3-5.7); RED CELL DISTRIBUTION WIDTH 14.6 % (11.7-14.4)
[2018-08-07 06:43] LABS: ALBUMIN/GLOBULIN RATIO 0.7 (0.8-2.0); ALKALINE PHOSPHATASE 134 IU/L (40-150); ANION GAP 8.8 mmol/L (8-16); BLOOD UREA NITROGEN 7 mg/dL (7-26); BUN/CREATININE RATIO 8 (6-25); CALCIUM 7.9 mg/dL (8.4-10.2); CARBON DIOXIDE 24 mmol/L (22-29); CHLORIDE 108 mmol/L (98-107); CREATININE, SERUM 0.89 mg/dL (0.72-1.25); EST GLOMERULAR FILTRATION RATE > 60 ML/MIN (60-); GLUCOSE 131 mg/dL (74-118); LIPASE 30 U/L (8-78); POTASSIUM 3.8 mmol/L (3.5-5.1); SODIUM 137 mmol/L (136-145)
[2018-08-07 06:47] LABS: ALANINE AMINOTRANSFERASE < 6 IU/L (0-55)
[2018-08-07] MEDS: INSULIN LISPRO 100 UNIT/1 ML 3ML VIAL SQ SCH ×4 (07:30→22:03)
[2018-08-07 08:57] VITALS: BP 132/62
[2018-08-07] MEDS ORDERED: PANTOPRAZOLE 40 MG 10ML VIAL IV SCH (09:00)
[2018-08-07 09:05] LABS: EOSINOPHILS % (MANUAL) 2 % (0-7); LYMPHOCYTES % (MANUAL) 23 % (19-48); MONOCYTES % (MANUAL) 9 % (3.4-9.0); NEUTROPHILS % (MANUAL) 66 % (40-74); PLATELET ESTIMATE SLIGHTLY DECREASED; PLATELET MORPHOLOGY COMMENT NORMAL; RBC MORPHOLOGY COMMENT NORMAL
[2018-08-07] MEDS: CARBIDOPA/LEVODOPA 25/100 TAB PO SCH ×3 (09:13→22:00)
[2018-08-07] MEDS: TAMSULOSIN HCL 0.4 MG CAP PO SCH (09:13)
[2018-08-07] MEDS ORDERED: PANTOPRAZOLE SOD 40 MG TABEC PO SCH (09:45)
[2018-08-07] MEDS ORDERED: HYDROCODONE/APAP 5MG-325MG TAB PO PRN (09:45)
[2018-08-07] MEDS: LEVOFLOXACIN 500 MG TAB PO SCH (10:43)
[2018-08-07 12:31] VITALS: BP 144/64
[2018-08-07 16:54] VITALS: BP 127/72
[2018-08-07 20:00] VITALS: BP 146/67
[2018-08-08] VITALS (7 sets, daily range): BP systolic 118–146; BP diastolic 58–67
[2018-08-08] MEDS: LEVOTHYROXINE SODIUM 25 MCG TABLET PO SCH (06:02)
[2018-08-08 06:46] LABS: ALBUMIN 2.1 g/dL (3.5-5.0); ALBUMIN/GLOBULIN RATIO 0.8 (0.8-2.0); ALKALINE PHOSPHATASE 141 IU/L (40-150); ANION GAP 7.6 mmol/L (8-16); BLOOD UREA NITROGEN 6 mg/dL (7-26); BUN/CREATININE RATIO 7 (6-25); CALCIUM 8.4 mg/dL (8.4-10.2); CARBON DIOXIDE 28 mmol/L (22-29); CHLORIDE 104 mmol/L (98-107); CREATININE, SERUM 0.92 mg/dL (0.72-1.25); EST GLOMERULAR FILTRATION RATE > 60 ML/MIN (60-); GLUCOSE 89 mg/dL (74-118); POTASSIUM 3.6 mmol/L (3.5-5.1); SODIUM 136 mmol/L (136-145)
[2018-08-08 07:29] LABS: ALANINE AMINOTRANSFERASE < 6 IU/L (0-55)
[2018-08-08] MEDS: INSULIN LISPRO 100 UNIT/1 ML 3ML VIAL SQ SCH ×3 (07:30→16:30)
[2018-08-08] MEDS ORDERED: PANTOPRAZOLE SOD 40 MG TABEC PO SCH (07:30)
[2018-08-08] MEDS: CARBIDOPA/LEVODOPA 25/100 TAB PO SCH ×2 (08:24→15:41)
[2018-08-08] MEDS: TAMSULOSIN HCL 0.4 MG CAP PO SCH (08:24)
[2018-08-08] MEDS: LEVOFLOXACIN 500 MG TAB PO SCH (09:30)
--- NOTE | 2018-08-08 10:08 | Discharge Summary ---
CONSULTANTS: Dr. Petr Aguilar and Dr. Ashok Wright. FINAL DIAGNOSES 1. Gallstone pancreatitis, resolved. 2. Status post laparoscopic cholecystectomy. 3. Thickening of gallbladder. Preliminary pathology negative for malignancy. SUMMARY: Patient is an 87-year-old male that came in with gallstone pancreatitis. Patient had a MRCP that showed pancreatitis, but no significant pancreatic inflammation. MRCP that was done on August 06, 2018, showed extrahepatic biliary dilatation with evidence of the distal common bile duct measuring 8 mm in diameter. The circumferential irregular gallbladder wall thickening with a 2-cm stone in the fundus suggestive of acute pancreatitis. Patient underwent ERCP x-ray. The patient is stable at this time. He is comfortable. The pancreatitis has resolved. He is status post laparoscopic cholecystectomy done by Dr. Ashok Wright. The patient's recovery was slow, but otherwise unremarkable. The patient is stable and discharged home today. The patient will resume his home medications. No further workup needed at this time. The patient is to follow up with Dr. Ashok Wright for postoperative care and followup. Patient has no pain. He is stable. Discharged home today. Job#: [id number] ROLO
[2018-08-08] MEDS ORDERED: MAGNESIUM HYDROXIDE 30 ML UDC PO ONE (11:45)
--- NOTE | 2018-08-08 15:13 | Diagnostic Imaging Report ---
MRCP CPT code: 15343 History: Status post laparoscopic cholecystectomy Comparison: MRCP 08/01/2018. Technique: Multiplanar, multisequence images of the abdomen were obtained per MRCP protocol. 3D volume rendered reformation images of the biliary tree were performed. No intravenous gadolinium was administered. Findings: Images are motion degraded. Biliary tree: The right common hepatic duct measures 4 mm in diameter (previously, 9 mm). Left common hepatic duct dilatation is no longer visualized. The distal common hepatic duct measures 6 mm in diameter. No filling defect. The cystic duct is normal in morphology. Common bile duct: Measures 7 mm in diameter (previously, 12 mm). It comes to a tight taper at the ampulla. Eccentric filling defect arising from the right in the distal common bile duct is new and measures 5 mm in length (series 7, image 39). More inferior is an eccentric filling defect arising from the left measuring 4 mm in transverse dimension and 6 mm in length (series 11, image 9). This is stable. A filling defect in the distal most portion of the common bile duct measures 3 mm (series 7, image 21). The gallbladder is absent. There is a small amount of fluid in the gallbladder fossa. Pancreas duct: Not dilated. Liver: No discrete mass Spleen: Normal in size and signal. No mass. Pancreas: Mild fatty atrophy. No mass. Kidneys: There is distention of the renal collecting systems. There is suggestion of a subcentimeter filling defect in the right renal pelvis measuring 4 mm. However, this cannot be confirmed on other pulse sequences. There are multiple high T2 signal cortical lesions that measure up to 18 mm, suggestive of cysts. One low T2 signal located in the interpolar cortex of the left kidney measures 9 mm. This cannot be assessed on the T1-weighted sequences given the presence of motion degradation. This was also present on prior MR. Adrenal glands: No mass. Lymph nodes: No enlarged abdominal or periaortic lymph nodes. Bowel: The stomach is distended with fluid and food. Visualized portions of the small bowel are normal in diameter with normal wall thickness. Visualized portions of the large bowel are normal in diameter with normal wall thickness. Peritoneum/retroperitoneum: There is fluid surrounding the liver extending into the paracolic gutter. Mild perisplenic ascites is present. Lung bases: Small pleural effusions. The heart is mildly enlarged. The aorta is ectatic. Abdominal aorta: Ectatic but not aneurysmally dilated. IMPRESSION: 1. Study is compromised due to motion degradation. Status post cholecystectomy and decompression of the biliary tree. Abdominal ascites and small pleural effusions as described above. 2. Improved biliary ductal dilatation. Three intraluminal foci in the common bile duct may represent post ERCP air bubbles or intraluminal calculi. The air can be confirmed with CT. There is one intraluminal filling defect that is stable suggestive of eccentric stone or polyp. Recommend correlation with ERCP findings. Recommend follow-up MRCP in 3-4 weeks to assess interval change. 3. Prominent renal collecting systems without francisco hydronephrosis. Low T2 signal lesion in the left kidney should be periodically monitored with MRI to confirm stability. Thank you for your referral. Signed by: Dr. Nanci Connolly MD on 08/08/2018 3:10 PM
== END 2018-08-08 18:17 | disposition home or self-care (01) | DRG 408 ==
LOC: ER 14:53 → ERHOLD 19:00 → IMCU 19:50 → MED/SURG2 08-06 09:51 → MED/SURG 08-06 09:57
PROVIDERS: ADMIT Internal Medicine; ATTEND Internal Medicine
PROC: 0FJB8ZZ Inspection of Hepatobiliary Duct, Via Natural or Artificial Opening Endoscopic (ICD-10-PCS; 2018-08-01)
PROC: 0F9400Z Drainage of Gallbladder with Drainage Device, Open Approach (ICD-10-PCS; 2018-08-03)
PROC: 0FJ44ZZ Inspection of Gallbladder, Percutaneous Endoscopic Approach (ICD-10-PCS; 2018-08-03)
PROC: 0FB40ZX Excision of Gallbladder, Open Approach, Diagnostic (ICD-10-PCS; principal; 2018-08-03 07:53)
DX: K80.42 Calculus of bile duct with acute cholecystitis without obstruction (principal); K85.10 Biliary acute pancreatitis without necrosis or infection; K85.00 Idiopathic acute pancreatitis without necrosis or infection; K82.8 Other specified diseases of gallbladder; J44.9 Chronic obstructive pulmonary disease, unspecified; E11.42 Type 2 diabetes mellitus with diabetic polyneuropathy; I10 Essential (primary) hypertension; E78.5 Hyperlipidemia, unspecified; E03.9 Hypothyroidism, unspecified; G20 Parkinson's disease; K21.9 Gastro-esophageal reflux disease without esophagitis; R33.9 Retention of urine, unspecified; Z79.84 Long term (current) use of oral hypoglycemic drugs
CPT/HCPCS: 36415; 43260; 71045; 71260; 74177; 74181; 74183; 74328; 76705; 78226; 80053; 81001; 82140; 82150; 82550; 82553; 82607; 82948; 83036; 83605; 83690; 83735; 83880; 84100; 84443; 84484; 85025; 85610; 85730; 87040; 87071; 87205; 88304; 96361; 96365; 97139; 99284; A9537; J0696; J2001; J2270; J2405; J2543; J2805; J7040; J7042; J7120; Q9967